=== PATIENT | female | born 1960 | race Caucasian/White ===

== ENCOUNTER 2020-08-12 20:20 | Outpatient (REF) | payer OTHER, SELFPAY | END 2020-08-12 20:21 | disposition home or self-care (01) | LOC: HO.LNP 20:20 | PROVIDERS: Visit Provider Family Medicine | DX: Z20.822 Contact with and (suspected) exposure to COVID-19 (principal); R05 Cough | CPT/HCPCS: U0003; U0005 ==

== ENCOUNTER 2021-01-18 12:16 | Outpatient (REF) | payer OTHER, SELFPAY ==
[2021-01-18 14:16] LABS: Alanine Aminotransferase 204 U/L (0-31); Albumin Level 4.2 g/dL (3.5-5.0); Alkaline Phosphatase 66 U/L (39-117); Anion Gap 14 (12-20); Aspartate Amino Transferase 170 U/L (5-31); Bilirubin Total 0.7 mg/dL (0.0-1.0); Blood Urea Nitrogen 7 mg/dL (9-16); Calcium 9.6 mg/dL (8.4-10.2); Carbon Dioxide 30 mmol/L (22-29); Chloride 101 mmol/L (96-108); Cholesterol 207 mg/dL; Estimated Glomerular Filt Rate 59; Glucose Fasting 143 mg/dL (60-99); HDL Cholesterol 40 mg/dL; LDL Cholesterol Calculated 99 mg/dl; Potassium 3.7 mmol/L (3.3-5.1); Sodium 141 mmol/L (135-145); Total Protein 7.4 g/dL (6.5-8.0); Triglycerides 343 mg/dL
[2021-01-18 14:38] LABS: TSH reflex Free T4 7.23 uIU/mL (0.32-4.0)
[2021-01-18 15:13] LABS: Free T4 (Free Thyroxine) 1.25 ng/dL (0.71-1.85)
== END 2021-01-18 12:17 | disposition home or self-care (01) ==
LOC: HO.WFDLDS 12:16
PROVIDERS: Visit Provider Family Medicine
DX: Z00.00 Encounter for general adult medical examination without abnormal findings (principal); I10 Essential (primary) hypertension
CPT/HCPCS: 36415; 80053; 80061; 84439; 84443

== ENCOUNTER 2021-06-14 18:05 | Outpatient (REF) | payer OTHER, SELFPAY ==
[2021-06-14 18:54] LABS: Influenza A PCR NEGATIVE (Negative); Influenza B PCR NEGATIVE (Negative); Resp Syncy Virus RNA Qual PCR NEGATIVE (Negative); SARS COV2 PCR INHOUSE NEGATIVE (Negative)
== END 2021-06-14 18:06 | disposition home or self-care (01) ==
LOC: HO.LNP 18:05
PROVIDERS: Visit Provider Hospitalist
DX: Z20.822 Contact with and (suspected) exposure to COVID-19 (principal); B34.9 Viral infection, unspecified
CPT/HCPCS: 0241U

== ENCOUNTER 2021-09-22 16:20 | Outpatient (REF) | payer OTHER, SELFPAY ==
--- NOTE | ~2021-09-22 | MM_ITS ---
EXAMINATION: MM SCREENING DIGITAL BREAST TOMOSYNTHESIS, BILATERAL CLINICAL INFORMATION: Screening. Asymptomatic. The lifetime risk of breast cancer based on the Tyrer-Cuzick Model is 7%. COMPARISON: Outside mammography: 04/15/2019, 08/06/2017, 08/02/2016 ([place]) TECHNIQUE: Digital breast tomosynthesis is performed in both the craniocaudal and mediolateral oblique views along with computer-aided detection (CAD). Synthesized 2D images are generated from the tomosynthesis. Additional left CC view is provided. FINDINGS: The breasts are heterogeneously dense, which may obscure small masses (ACR BI-RADS breast composition Category c). Parenchymal pattern is similar to prior outside studies. There is no developing density or interval mass or architectural abnormality. Left breast has biopsy clip marker posterior central 3:00 position. No abnormal calcifications. The axilla are unremarkable. There are small bilateral low axillary tail nodes decreased in size. The skin contours are smooth. There are no significant changes. MM/MM tomosynthesis screening BI IMPRESSION: No significant changes from prior outside studies. ASSESSMENT: BI-RADS 2: Benign RECOMMENDATION: Routine annual mammography screening. This patient's information was entered into a reminder system with a target due date for their next mammogram.
[2021-09-22 17:25] LABS: Alanine Aminotransferase 193 U/L (0-31); Albumin Level 3.9 g/dL (3.5-5.0); Alkaline Phosphatase 90 U/L (39-117); Anion Gap 9 (12-20); Aspartate Amino Transferase 194 U/L (5-31); Bilirubin Total 0.5 mg/dL (0.0-1.0); Blood Urea Nitrogen 10 mg/dL (9-16); Calcium 9.7 mg/dL (8.4-10.2); Carbon Dioxide 32 mmol/L (22-29); Chloride 101 mmol/L (96-108); Cholesterol 180 mg/dL; Estimated Glomerular Filt Rate 45; Glucose Fasting 228 mg/dL (60-99); HDL Cholesterol 33 mg/dL; LDL Cholesterol Calculated 106 mg/dl; Sodium 138 mmol/L (135-145); Total Protein 7.4 g/dL (6.5-8.0); Triglycerides 207 mg/dL
[2021-09-22 17:39] LABS: Free T4 (Free Thyroxine) 0.64 ng/dL (0.71-1.85); Thyroid Stimulating Hormone 49.87 uIU/mL (0.32-4.0)
[2021-09-24 05:06] LABS: Triiodothyronine T3 Total 43 ng/dL (76-181)
== END 2021-09-22 16:21 | disposition home or self-care (01) ==
LOC: HO.MAMMO 16:20
PROVIDERS: Visit Provider Family Medicine
DX: Z00.00 Encounter for general adult medical examination without abnormal findings (principal); Z12.31 Encounter for screening mammogram for malignant neoplasm of breast; E03.9 Hypothyroidism, unspecified; R74.8 Abnormal levels of other serum enzymes
CPT/HCPCS: 36415; 77063; 77067; 80053; 80061; 84439; 84443; 84480

== ENCOUNTER 2021-11-03 12:19 | Outpatient (REF) | payer OTHER, SELFPAY ==
[2021-11-03 14:01] LABS: Estimated Average Glucose 143 mg/dL; Hemoglobin A1c % 6.6 %
[2021-11-03 14:10] LABS: Alanine Aminotransferase 74 U/L (0-31); Albumin Level 4.2 g/dL (3.5-5.0); Alkaline Phosphatase 70 U/L (39-117); Anion Gap 16 (12-20); Aspartate Amino Transferase 115 U/L (5-31); Bilirubin Total 0.9 mg/dL (0.0-1.0); Blood Urea Nitrogen 7 mg/dL (9-16); Carbon Dioxide 28 mmol/L (22-29); Chloride 98 mmol/L (96-108); Cholesterol 262 mg/dL; Estimated Glomerular Filt Rate 44; Glucose Random 243 mg/dL (60-115); HDL Cholesterol 71 mg/dL; LDL Cholesterol Calculated 166 mg/dl; Sodium 138 mmol/L (135-145); Total Protein 7.9 g/dL (6.5-8.0); Triglycerides 127 mg/dL
[2021-11-03 14:31] LABS: Free T4 (Free Thyroxine) 1.84 ng/dL (0.71-1.85); Thyroid Stimulating Hormone 15.31 uIU/mL (0.32-4.0)
[2021-11-04 16:07] LABS: Triiodothyronine T3 Total 94 ng/dL (76-181)
== END 2021-11-03 12:20 | disposition home or self-care (01) ==
LOC: HO.WFDLDS 12:19
PROVIDERS: Visit Provider Family Medicine
DX: Z00.00 Encounter for general adult medical examination without abnormal findings (principal); F10.20 Alcohol dependence, uncomplicated; E78.5 Hyperlipidemia, unspecified; E03.9 Hypothyroidism, unspecified; R74.8 Abnormal levels of other serum enzymes; E11.9 Type 2 diabetes mellitus without complications
CPT/HCPCS: 36415; 80053; 80061; 83036; 84439; 84443; 84480; 99202; 99212

== ENCOUNTER → 2021-11-10 15:54 | Outpatient (BNVA) | payer OTHER, SELFPAY | PROVIDERS: PCP Hospitalist; Visit Provider Nurse Practitioner Psychiatric/Mental Health | DX: F10.20 Alcohol dependence, uncomplicated (principal); Z79.891 Long term (current) use of opiate analgesic | CPT/HCPCS: 80305; 99212 ==

== ENCOUNTER 2021-11-15 12:11 | Outpatient (REF) | payer OTHER, SELFPAY ==
[2021-11-15 13:48] LABS: Estimated Average Glucose 128 mg/dL; Hemoglobin A1c % 6.1 %
[2021-11-15 13:52] LABS: Alanine Aminotransferase 109 U/L (0-31); Albumin Level 4.1 g/dL (3.5-5.0); Alkaline Phosphatase 68 U/L (39-117); Anion Gap 14 (12-20); Aspartate Amino Transferase 90 U/L (5-31); Blood Urea Nitrogen 32 mg/dL (9-16); Calcium 9.6 mg/dL (8.4-10.2); Carbon Dioxide 25 mmol/L (22-29); Chloride 102 mmol/L (96-108); Estimated Glomerular Filt Rate 18; Glucose Random 119 mg/dL (60-115); Potassium 3.7 mmol/L (3.3-5.1); Sodium 137 mmol/L (135-145); Total Protein 7.4 g/dL (6.5-8.0)
[2021-11-15 14:16] LABS: Free T4 (Free Thyroxine) 1.58 ng/dL (0.71-1.85); Thyroid Stimulating Hormone 0.28 uIU/mL (0.32-4.0)
[2021-11-17 13:17] LABS: Triiodothyronine T3 Total 87 ng/dL (76-181)
== END 2021-11-15 12:12 | disposition home or self-care (01) ==
LOC: HO.WFDLDS 12:11
PROVIDERS: Visit Provider Family Medicine
DX: E03.9 Hypothyroidism, unspecified (principal); R73.01 Impaired fasting glucose; F10.10 Alcohol abuse, uncomplicated
CPT/HCPCS: 36415; 80053; 83036; 84439; 84443; 84480

== ENCOUNTER 2021-11-22 12:45 | Outpatient (REF) | payer OTHER, SELFPAY ==
[2021-11-22 13:46] LABS: Anion Gap 14 (12-20); Blood Urea Nitrogen 10 mg/dL (9-16); Calcium 9.8 mg/dL (8.4-10.2); Carbon Dioxide 27 mmol/L (22-29); Chloride 102 mmol/L (96-108); Estimated Glomerular Filt Rate 52; Glucose Random 163 mg/dL (60-115); Potassium 3.6 mmol/L (3.3-5.1); Sodium 139 mmol/L (135-145)
== END 2021-11-22 12:46 | disposition home or self-care (01) ==
LOC: HO.WFDLDS 12:45
PROVIDERS: Visit Provider Hospitalist
DX: N17.9 Acute kidney failure, unspecified (principal)
CPT/HCPCS: 36415; 80048

== ENCOUNTER → 2021-11-24 16:35 | Outpatient (BNVA) | payer OTHER, SELFPAY | PROVIDERS: PCP Hospitalist; Visit Provider Nurse Practitioner Psychiatric/Mental Health | DX: Z51.81 Encounter for therapeutic drug level monitoring (principal); F10.20 Alcohol dependence, uncomplicated | CPT/HCPCS: 99212 ==

== ENCOUNTER 2021-12-29 12:59 | Outpatient (REF) | payer OTHER, SELFPAY ==
--- NOTE | ~2021-12-29 | US_ITS ---
EXAMINATION: US ABDOMEN LIMITED WITH LIVER ELASTOGRAPHY CLINICAL INFORMATION: Alcohol abuse COMPARISON: None. TECHNIQUE: Real-time imaging of the abdominal viscera. Noninvasive ultrasound liver fibrosis assessment is performed using Robert ElastPQ point quantification shear wave elastography (2D-SWE) with a C5-2 MHz transducer. Multiple elastography samples are obtained. FINDINGS: PANCREAS: The visualized pancreatic head and body are normal in appearance. The remainder of the pancreas is obscured from visualization by the overlying bowel gas. LIVER: Liver echotexture is increased. The liver demonstrates normal size and contour. No focal lesion or intrahepatic biliary duct dilatation. The right lobe measures 17 cm in length. The left lobe measures 13 cm in length. Portal flow is normal/hepatopedal Shear wave liver elastography median stiffness is 1.6 m/s (reference: normal median stiffness is 1.3 m/s or less). IQR/median stiffness to assess sampling precision is 0.38 (reference: good quality data set is IQR/median stiffness of 0.15 or less). GALLBLADDER: Gallbladder is normal in size. There is ring down artifact suggestive of adenomyomatosis of the gallbladder wall. There is a curvilinear dependent echogenic density seen in the neck of the gallbladder measuring 6 x 11 mm. On some images this demonstrates posterior acoustic shadowing questionable for a stone. COMMON BILE DUCT: Normal in caliber measuring 0.3 cm in diameter. RIGHT KIDNEY: Mild hydronephrosis. No renal calculi or focal parenchymal lesions. The kidney measures 13.6 cm in maximum dimension. FREE FLUID: None. US/US abdomen garcía w elastography IMPRESSION: 1. Impression: Echogenic liver. No evidence of cirrhosis or focal lesion. Adenomyomatosis of the gallbladder wall and question gallstone. Mild right hydronephrosis. Limited visualization of the tail the pancreas. 2. Liver elastography: Limited due to sampling error. REFERENCE: Society of Radiologists in Ultrasound Liver Stiffness Thresholds (2020): LIVER STIFFNESS THRESHOLDS: *Liver Stiffness equal or less than 1.3 m/s: High probability of being normal. *Liver Stiffness less than 1.7 m/s: In the absence of other known clinical signs, rules out compensated advanced chronic liver disease. *Liver Stiffness 1.7-2.1 m/s: Suggestive of compensated advanced chronic liver disease but need further test for confirmation. *Liver Stiffness over 2.1 m/s: Rules in compensated advanced chronic liver disease. *Liver Stiffness over 2.4 m/s: Suggestive of clinically significant portal hypertension. QUALITY OF DATA SET: *IQR/Median value equal or less than 0.15 implies a quality data set. *IQR/Median value over 0.15 implies a poor quality data set. SIGNIFICANT CHANGE FROM PRIOR EXAM: Significant change if liver stiffness measurement is 10% or greater from prior exam. OTHER CONSIDERATIONS: The stage of liver fibrosis may be overestimated in the setting of acute hepatitis, liver inflammation, elevated liver function tests, hepatic vascular congestion, obstructive cholestasis, non-fasting state, and infiltrative diseases such as amyloidosis and lymphoma. In some patients with NAFLD, the liver stiffness thresholds for compensated advanced chronic liver disease may be lower. In causes other than viral hepatitis and NAFLD, liver stiffness thresholds are not well established.
== END 2021-12-29 13:00 | disposition home or self-care (01) ==
LOC: HO.US 12:59
PROVIDERS: Visit Provider Family Medicine
DX: R74.8 Abnormal levels of other serum enzymes (principal); F10.10 Alcohol abuse, uncomplicated
CPT/HCPCS: 76705; 76981

== ENCOUNTER 2022-01-25 12:11 | Outpatient (REF) | payer OTHER, SELFPAY ==
[2022-01-25 14:45] LABS: Alanine Aminotransferase 14 U/L (0-31); Alkaline Phosphatase 59 U/L (39-117); Anion Gap 15 (12-20); Aspartate Amino Transferase 17 U/L (5-31); Bilirubin Total 0.5 mg/dL (0.0-1.0); Blood Urea Nitrogen 13 mg/dL (9-16); Calcium 10.2 mg/dL (8.4-10.2); Carbon Dioxide 30 mmol/L (22-29); Chloride 102 mmol/L (96-108); Cholesterol 154 mg/dL; Estimated Glomerular Filt Rate 57; Glucose Random 79 mg/dL (60-115); HDL Cholesterol 32 mg/dL; LDL Cholesterol Calculated 87 mg/dl; Potassium 3.6 mmol/L (3.3-5.1); Sodium 143 mmol/L (135-145); Total Protein 7.4 g/dL (6.5-8.0); Triglycerides 178 mg/dL
[2022-01-25 15:08] LABS: Free T4 (Free Thyroxine) 0.92 ng/dL (0.71-1.85); Thyroid Stimulating Hormone 2.68 uIU/mL (0.32-4.0)
[2022-01-27 14:47] LABS: Triiodothyronine T3 Total 109 ng/dL (76-181)
== END 2022-01-25 12:12 | disposition home or self-care (01) ==
LOC: HO.WFDLDS 12:11
PROVIDERS: Visit Provider Family Medicine
DX: Z00.00 Encounter for general adult medical examination without abnormal findings (principal); E03.9 Hypothyroidism, unspecified; E78.5 Hyperlipidemia, unspecified; R74.8 Abnormal levels of other serum enzymes
CPT/HCPCS: 36415; 80053; 80061; 84439; 84443; 84480

== ENCOUNTER → 2022-01-30 15:28 | Outpatient (BNVA) | payer OTHER, SELFPAY | PROVIDERS: PCP Family Medicine; Visit Provider Internal Medicine | DX: D13.5 Benign neoplasm of extrahepatic bile ducts (principal); F10.20 Alcohol dependence, uncomplicated | CPT/HCPCS: 99202 ==

== ENCOUNTER 2022-01-30 16:24 | Outpatient (REF) | payer OTHER, SELFPAY ==
[2022-01-30 17:42] LABS: Hematocrit 37.5 % (37.0-47.0); Hemoglobin 12.3 g/dl (12.0-16.0); Mean Corpuscular HGB Conc 32.8 g/dl (31.0-35.0); Mean Corpuscular Hemoglobin 32.3 pg (27.0-33.0); Mean Corpuscular Volume 98.4 fL (80.0-98.0); Mean Platelet Volume 8.8 fL (9.4-12.3); Platelet Count 250 X10*3/uL (160-400); Red Blood Count 3.81 X10*6/uL (4.20-5.50); Red Cell Distribution Width 12.6 % (11.0-16.0); White Blood Count 9.7 X10*3/uL (4.8-10.8)
[2022-01-30 17:48] LABS: Prothrombin Time 11.7 SEC (10.0-13.1)
[2022-01-30 17:54] LABS: Albumin Level 4.2 g/dL (3.5-5.0)
[2022-01-30 17:56] LABS: Estimated Average Glucose 148 mg/dL; Hemoglobin A1c % 6.8 %
[2022-01-31 04:40] LABS: HBS Num1 46.91 mIU/mL (0-7.99); HBc Num1 0.11 S/CO (0.00-0.79); HBsAGNum1 0.18 S/CO (0.00-0.99); Hepatitis B Core Antibody Nonreactive (Nonreactive); Hepatitis B Surface Antigen Negative (Negative); ~HepC Num1 0.12 S/CO (0.00-0.79); ~Hepatitis B Surface Antibody REACTIVE (Nonreactive); ~Hepatitis C Antibody Nonreactive (Nonreactive)
[2022-02-01 05:03] LABS: Hepatitis A Antibody IgG REACTIVE (Nonreactive); ~Hepatitis A Antibody IgG 10.78 S/CO (0.00-0.99)
== END 2022-01-30 16:25 | disposition home or self-care (01) ==
LOC: HO.LAB 16:24
PROVIDERS: PCP Family Medicine; Visit Provider Internal Medicine
DX: F10.20 Alcohol dependence, uncomplicated (principal)
CPT/HCPCS: 36415; 82040; 83036; 85027; 85610; 86704; 86706; 86708; 86803; 87340

== ENCOUNTER 2022-02-24 16:06 | Outpatient (REF) | payer OTHER, SELFPAY ==
--- NOTE | ~2022-02-24 | MR_ITS ---
EXAMINATION: MR ABDOMEN WITHOUT AND WITH CONTRAST CLINICAL INFORMATION: Benign neoplasm of extrahepatic bile ducts. COMPARISON: Ultrasound 12/29/2021 TECHNIQUE: MR abdomen was performed without and with use of 9 mL intravenous Gadavist gadolinium contrast. Postcontrast images are performed in multiphase dynamic sequences. Imaging was performed in 3 planes. Heavily T2-weighted MRCP images were performed. FINDINGS: LUNG BASES: The visualized lung bases are unremarkable. LIVER, GALLBLADDER, AND BILIARY TREE: The liver is normal in size, smooth in contour, and normal in signal. No focal hepatic lesion or biliary ductal dilatation is present. There is thickening of the fundus of the gallbladder with bright T2 signal for example sagittal series 6 image 26/38, in keeping with the appearance of adenomyomatosis on the prior ultrasound. No definite gallstones seen. No pericholecystic fluid or inflammatory changes. PANCREAS: Unremarkable. SPLEEN: Normal. ADRENAL GLANDS: Normal. KIDNEYS AND URETERS: The kidneys are normal in size, shape, and enhance symmetrically. No hydronephrosis. No perinephric stranding. 5 mm right anterior mid-lower renal cortical cyst; no imaging follow-up recommended. GASTROINTESTINAL TRACT: No bowel obstruction. No ascites or fluid collection. ABDOMINAL WALL: No significant hernia is appreciated. LYMPH NODES: No lymphadenopathy. VASCULAR: Unremarkable. OSSEOUS STRUCTURES: Marrow signal normal. There is disc desiccation L3-L4 through L5-S1 with mild loss of disc height at L5-S1. MR/MR abdomen wo/w con IMPRESSION: No biliary ductal dilatation. No hydronephrosis. The appearance of the fundus of the gallbladder is in keeping with the adenoma myomatosis of the gallbladder suspected on prior ultrasound.
== END 2022-02-24 16:07 | disposition home or self-care (01) ==
LOC: HO.MRI 16:06
PROVIDERS: Visit Provider Internal Medicine
DX: D13.5 Benign neoplasm of extrahepatic bile ducts (principal)
CPT/HCPCS: 74183; A9585

== ENCOUNTER 2022-05-12 11:16 | Outpatient (REF) | payer OTHER, SELFPAY ==
[2022-05-12 13:47] LABS: MANUAL DIFF FLAG NO
[2022-05-12 13:51] LABS: Appearance Urine Cloudy; Color Urine Dark Yellow; Glucose Urine UA Negative (Negative); Leukocyte Esterase Urine Moderate (2+) (Negative); Nitrite Urine Negative (Negative); PH 5.5 (5.0-9.0); Specific Gravity - Urine 1.015 (1.005-1.025); UMIC TRIGGER UA YES; Urine Blood Negative (Negative); Urine Ketones Negative (Negative); Urine Protein Negative (Neg-Trace)
[2022-05-12 13:52] LABS: Basophils Absolute Auto 0.1 X10*3/uL (0.0-0.2); Basophils Percent Auto 0.6 % (0-2); Eosinophils Absolute Auto 0.3 X10*3/uL (0.0-0.4); Eosinophils Percent Auto 2.8 % (0-4); Hematocrit 37.4 % (37.0-47.0); Hemoglobin 12.8 g/dl (12.0-16.0); Imm Gran Abs Auto 0.04 X10*3/uL (0.00-0.03); Imm Gran Pct Auto 0.4 % (0.0-0.4); Lymphocytes Absolute Auto 2.7 X10*3/uL (1.2-4.9); Lymphocytes Percent Auto 27.3 % (20-40); Mean Corpuscular HGB Conc 34.2 g/dl (31.0-35.0); Mean Corpuscular Hemoglobin 32.3 pg (27.0-33.0); Mean Corpuscular Volume 94.4 fL (80.0-98.0); Mean Platelet Volume 9.1 fL (9.4-12.3); Monocytes Absolute Auto 0.7 X10*3/uL (0.1-1.2); Monocytes Percent Auto 6.8 % (2-11); Neutrophils Absolute Auto 6.2 x10*3/uL (2.0-8.3); Neutrophils Percent Auto 62.1 % (45-73); Platelet Count 243 X10*3/uL (160-400); Red Blood Count 3.96 X10*6/uL (4.20-5.50); Red Cell Distribution Width 12.9 % (11.0-16.0)
[2022-05-12 13:54] LABS: Bacteria Urine 4+ (None Seen); Hyaline Casts Urine 0-2 /LPF (0-2); RBC Urine 0-2 /HPF (0-2)
[2022-05-12 14:21] LABS: Creatinine Urine 135.19 mg/dL; Microalbum/Creatinine Ratio Ur 4.4 ug/mg cr
[2022-05-12 14:54] LABS: Alanine Aminotransferase 25 U/L (0-31); Albumin Level 4.1 g/dL (3.5-5.0); Alkaline Phosphatase 82 U/L (39-117); Anion Gap 15 (12-20); Aspartate Amino Transferase 17 U/L (5-31); Bilirubin Total 0.4 mg/dL (0.0-1.0); Blood Urea Nitrogen 17 mg/dL (9-16); Calcium 10.1 mg/dL (8.4-10.2); Carbon Dioxide 28 mmol/L (22-29); Chloride 103 mmol/L (96-108); Cholesterol 154 mg/dL; Estimated Glomerular Filt Rate 50; Free T4 (Free Thyroxine) 0.92 ng/dL (0.71-1.85); Glucose Fasting 141 mg/dL (60-99); HDL Cholesterol 31 mg/dL; LDL Cholesterol Calculated 56 mg/dl; Sodium 142 mmol/L (135-145); Thyroid Stimulating Hormone 9.57 uIU/mL (0.32-4.0); Total Protein 7.3 g/dL (6.5-8.0); Triglycerides 338 mg/dL
[2022-05-13 17:45] LABS: Triiodothyronine T3 Total 80 ng/dL (76-181)
== END 2022-05-12 11:17 | disposition home or self-care (01) ==
LOC: HO.WFDLDS 11:16
PROVIDERS: Visit Provider Family Medicine
DX: Z00.00 Encounter for general adult medical examination without abnormal findings (principal); E03.9 Hypothyroidism, unspecified; I10 Essential (primary) hypertension
CPT/HCPCS: 36415; 80053; 80061; 81001; 82043; 84439; 84443; 84480; 85025

== ENCOUNTER 2022-06-02 14:27 | Outpatient (REF) | payer OTHER, SELFPAY ==
--- NOTE | ~2022-06-02 | MM_ITS ---
EXAMINATION: BONE DENSITOMETRY CLINICAL INDICATION: Menopause. COMPARISON: None (current study represents initial baseline exam). TECHNIQUE: Using a Netpulse DXA System (software version: 13.1) manufactured by [employer], dual-energy x-ray absorptiometry was performed of the lumbar spine and left hip. The images are of good technical quality. Summary results are attached. FINDINGS: AP SPINE L1-L2 (excluding L3 and L4): The data of L1-L4 has been changed to exclude the L3 and L4 vertebral bodies, because probable degenerative changes at these levels may cause overestimation of lumbar spine density. BMD 1.707 g/cm2, Z-score 4.9, T-score 4.5, normal. LEFT FEMUR, NECK: BMD 1.337 g/cm2, Z-score 2.9, T-score 2.1, normal. LEFT FEMUR, TOTAL: BMD 1.510 g/cm2, Z-score 4.3, T-score 4.0, normal. IDENTIFIED RISK FACTORS: Menopause, low calcium intake. HISTORY OF FRACTURE: None listed. MEDICATIONS: None listed. MM/XR DEXA axial skeleton IMPRESSION: 1. DIAGNOSIS: Normal bone density based on the lowest T-score value of 2.1 in the femoral neck applying World Health Organization criteria. 2. 10-YEAR FRACTURE RISK PREDICTION, FRAX: According to the guidelines, FRAX calculation should only be performed on patients in the osteopenia bone density category. Therefore, FRAX was not performed on this patient. 3. Treatment Recommendations: NOF guidelines recommend consideration for treatment in postmenopausal women and men age 50 and older presenting with the following: -A hip or vertebral (clinical or morphometric) fracture. -T-score less than or equal to -2.5 at the femoral neck or spine after appropriate evaluation to exclude secondary causes. -Low bone mass at the hip or spine and a 10-year fracture probability by FRAX of greater than or equal to 3% for hip fracture or greater than or equal to 20% for major osteoporotic fracture based on the [place] adapted WHO algorithm. 4. Other Recommendations: All treatment decisions require clinical judgment and consideration of individual patient factors, including patient preferences, comorbidities, previous drug use, risk factors not captured in the FRAX model (e.g. frailty, falls, vitamin D deficiency, increased bone turnover, interval significant decline in bone density) and possible under or overestimation of fracture risk by FRAX. FUTURE SCAN RECOMMENDATION: People with diagnosed cases of osteoporosis or at high risk for fracture should have regular bone mineral density tests. For patients eligible for Medicare, routine testing is allowed once every 2 years. The testing frequency can be increased to one year for patients who have rapidly progressing disease, those who are receiving or discontinuing medical therapy to restore bone mass, or have additional risk factors.
[2022-06-02 15:26] LABS: Appearance Urine Cloudy; Color Urine Dark Yellow; Glucose Urine UA Negative (Negative); Leukocyte Esterase Urine Trace (Negative); Nitrite Urine Negative (Negative); UMIC TRIGGER UA YES; Urine Blood Negative (Negative); Urine Ketones Negative (Negative); Urine Protein Negative (Neg-Trace)
[2022-06-02 15:34] LABS: Bacteria Urine 4+ (None Seen); Hyaline Casts Urine 0-2 /LPF (0-2); RBC Urine 0-2 /HPF (0-2)
[2022-06-02 16:16] LABS: Free T4 (Free Thyroxine) 0.74 ng/dL (0.71-1.85); Thyroid Stimulating Hormone 9.17 uIU/mL (0.32-4.0)
[2022-06-05 08:36] LABS: Triiodothyronine T3 Total 57 ng/dL (76-181)
== END 2022-06-02 14:28 | disposition home or self-care (01) ==
LOC: HO.MAMMO 14:27
PROVIDERS: PCP Family Medicine; Visit Provider Family Medicine
DX: Z13.820 Encounter for screening for osteoporosis (principal); Z78.0 Asymptomatic menopausal state; E03.9 Hypothyroidism, unspecified
CPT/HCPCS: 36415; 77080; 81001; 84439; 84443; 84480

== ENCOUNTER 2022-08-14 12:26 | Outpatient (REF) | payer OTHER, SELFPAY ==
[2022-08-14 14:18] LABS: Alanine Aminotransferase 22 U/L (0-31); Alkaline Phosphatase 61 U/L (39-117); Anion Gap 11 (12-20); Aspartate Amino Transferase 23 U/L (5-31); Bilirubin Total 0.5 mg/dL (0.0-1.0); Blood Urea Nitrogen 11 mg/dL (9-16); Calcium 9.5 mg/dL (8.4-10.2); Carbon Dioxide 33 mmol/L (22-29); Chloride 101 mmol/L (96-108); Cholesterol 190 mg/dL; Estimated Average Glucose 163 mg/dL; Estimated Glomerular Filt Rate 54; Glucose Fasting 183 mg/dL (60-99); HDL Cholesterol 37 mg/dL; Hemoglobin A1c % 7.3 %; LDL Cholesterol Calculated 93 mg/dl; Potassium 4.4 mmol/L (3.3-5.1); Sodium 141 mmol/L (135-145); Triglycerides 301 mg/dL
== END 2022-08-14 12:27 | disposition home or self-care (01) ==
LOC: HO.WFDLDS 12:26
PROVIDERS: Visit Provider Family Medicine
DX: Z00.00 Encounter for general adult medical examination without abnormal findings (principal); R73.01 Impaired fasting glucose
CPT/HCPCS: 36415; 80053; 80061; 83036

== ENCOUNTER → 2022-10-06 13:02 | Outpatient (BNVA) | payer OTHER, SELFPAY | PROVIDERS: PCP Family Medicine; Visit Provider Internal Medicine | DX: Z12.11 Encounter for screening for malignant neoplasm of colon (principal); D13.5 Benign neoplasm of extrahepatic bile ducts; F10.20 Alcohol dependence, uncomplicated | CPT/HCPCS: 99212 ==

== ENCOUNTER → 2022-10-25 14:58 | Outpatient (BNVA) | payer OTHER, SELFPAY | PROVIDERS: PCP Family Medicine; Referring Provider Internal Medicine; Visit Provider Surgery | DX: D13.5 Benign neoplasm of extrahepatic bile ducts (principal) | CPT/HCPCS: 99202 ==

== ENCOUNTER 2022-12-27 13:23 | Outpatient (REF) | payer OTHER, SELFPAY ==
[2022-12-27 14:59] LABS: Estimated Average Glucose 166 mg/dL; Hemoglobin A1c % 7.4 % (<6.0)
[2022-12-27 16:12] LABS: Alanine Aminotransferase 39 U/L (0-31); Albumin Level 4.3 g/dL (3.5-5.0); Alkaline Phosphatase 64 U/L (39-117); Anion Gap 12 (12-20); Aspartate Amino Transferase 29 U/L (5-31); Bilirubin Total 0.3 mg/dL (0.0-1.0); Blood Urea Nitrogen 11 mg/dL (9-16); Carbon Dioxide 27 mmol/L (22-29); Chloride 101 mmol/L (96-108); Cholesterol 185 mg/dL (<200); Estimated Glomerular Filt Rate 57; Glucose Fasting 302 mg/dL (60-99); HDL Cholesterol 39 mg/dL (>40); LDL Cholesterol Calculated 75 mg/dL (<100); Potassium 4.1 mmol/L (3.3-5.1); Sodium 136 mmol/L (135-145); Total Protein 7.6 g/dL (6.5-8.0); Triglycerides 357 mg/dL (<150)
[2022-12-27 16:30] LABS: Free T4 (Free Thyroxine) 0.92 ng/dL (0.71-1.85); Thyroid Stimulating Hormone 6.09 uIU/mL (0.32-4.0)
[2022-12-28 18:29] LABS: Triiodothyronine T3 Total 79 ng/dL (76-181)
== END 2022-12-27 13:24 | disposition home or self-care (01) ==
LOC: HO.LAB 13:23
PROVIDERS: PCP Family Medicine; Visit Provider Family Medicine
DX: Z01.419 Encounter for gynecological examination (general) (routine) without abnormal findings (principal); E03.9 Hypothyroidism, unspecified; E11.9 Type 2 diabetes mellitus without complications; Z00.00 Encounter for general adult medical examination without abnormal findings; E78.5 Hyperlipidemia, unspecified; R73.01 Impaired fasting glucose
CPT/HCPCS: 36415; 80053; 80061; 83036; 84439; 84443; 84480

== ENCOUNTER 2022-12-27 13:39 | Outpatient (AMB) | payer OTHER, SELFPAY ==
--- NOTE | 2022-12-27 13:40 | MHC.OFFVIS ---
Intake Vital Signs 12/27/22 13:41 Height 5 ft 4 in Weight 217 lb BMI 37.2 BP 148/70 H Intake Visit Reasons: New patient Annual Intake Note: Last pap unsure normal history per patient The patient agreed to use of a medical anthropologist during this encounter. Scribed for QUYNH Maurer by Neha Boston medical anthropologist, on 12/27/2022 at 2:05 pm EST. Ethylbenzene Converter Operator: Ethylbenzene Converter Operator Present (Luh) Allergies bupropion [From Wellbutrin] Allergy (Verified 12/27/22 13:41) rash iodine Allergy (Verified 12/27/22 13:41) hives lisinopril Allergy (Verified 12/27/22 13:41) angioadema shellfish derived Allergy (Verified 12/27/22 13:41) hives HPI HPI Comments History of Present Illness Details She is a new patient postmenopausal woman presenting for annual exam. Reports she is retiring. Patient admits she tries to eat a healthy diet including Calcium and Vitamin D. Currently not sexually active due to husbands health concerns. Denies vaginal itching and irritation. STD screening offered; she declines. Denies family hx of breast, colon and ovarian cancer. Last pap smear unknown date; normal per pt. Last mammogram 09/22/21. UTD on colonoscopy. 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 Current occupational exposures/hazards: No Sexual orientation: Straight/Heterosexual Gender identity: Female Cognitive needs: No Hearing needs: No Vision needs: No Female Reproductive History Menstrual Menopause type: natural Total pregnancies: 0 Date of Mammogram: 09/22/21 ([facility]) Physical Exam Vital Signs: Last Vital Signs BP 148/70 H 12/27/22 13:41 BMI result Body Mass Index 37.2 Const General: cooperative, healthy appearing, no acute distress, well developed and alert Orientation/consciousness: patient oriented x3 HEENT Head: Yes normal to inspection Eyes General: appearance normal, both eyes and all related structures Neck Neck: Yes normal visual inspection Thyroid: Thyroid normal Chest Chest palpation & inspection: normal inspection of the chest Breast/axilla inspection: normal inspection of the breasts (no puckering, dimpling, peau de orange, retraction, discharge, masses) Breast/axilla palpation: normal palpation of the breasts Resp Effort & Inspection: normal respiratory effort GI Inspection: Yes normal to inspection Palpation (GI): Soft to palpation (to palpation) Rectal Exam - Female: deferred General: Yes bladder normal to inspection External Female Exam: normal external appearance and normal appearance of the urethra Speculum Exam - Vagina: normal appearance of the vagina, normal palpation and normal vaginal discharge Speculum Exam - Cervix: normal appearance of the cervix and normal palpation Bimanual exam- vagina & uterus: normal palpation and normal palpation Bimanual Exam- Adnexa, other: normal adnexae and no masses Skin General skin exam: no rashes or lesions noted Neuro General: patient oriented x3 Cognition (Neuro): normal cognition Extrem General: Yes normal to inspection Psych Attitude: cooperative Thought process: Normal thought process present Assessment & Plan Assessment & Plan (1) Encounter for well woman exam: Code(s): Z01.419 - Encounter for gynecological examination (general) (routine) without abnormal findings Plan: Discussed: Current recommendations for pap smears per ASCCP guidelines. Breast awareness and periodic self breast exams. Encouraged yearly mammograms. Mammogram ordered. Maintaining a healthy lifestyle including a well balanced diet including Calcium and Vitamin D and routine exercise. Contact office with any PMB. All of her questions and concerns were addressed to the best of my ability RTO in 1 year for AG. Orders: Orders MM tomosynthesis screening BI Today Z12.31 - Encounter for screening mammogram for malignant neoplasm of breast Pap Smear Today Z01.419 - Encounter for gynecological examination (general) (routine) without abnormal findings Coding Level of Care Code Est Pt Prev Care 40-64y(88652) Diagnoses Encounter for well woman exam Z01.419
[2022-12-27 13:41] VITALS: BP 148/70; BMI 37.2
== END 2022-12-27 14:22 | disposition home or self-care (01) ==
LOC: HO.HWS 13:39
PROVIDERS: PCP Family Medicine; Visit Provider Advanced Practice Midwife
DX: Z01.419 Encounter for gynecological examination (general) (routine) without abnormal findings (principal)
CPT/HCPCS: 99396

== ENCOUNTER 2022-12-27 14:18 | Outpatient (REF) | payer OTHER, SELFPAY ==
[2023-01-02 23:08] LABS: HPV mRNA E6/E7 rflx Not Detected (Not Detected)
== END 2022-12-27 14:19 | disposition home or self-care (01) ==
LOC: HO.LNP 14:18
PROVIDERS: Visit Provider Advanced Practice Midwife
DX: E03.9 Hypothyroidism, unspecified (principal); E11.9 Type 2 diabetes mellitus without complications; Z00.00 Encounter for general adult medical examination without abnormal findings; E78.5 Hyperlipidemia, unspecified; R73.01 Impaired fasting glucose
CPT/HCPCS: 87624; 88142

== ENCOUNTER 2022-12-28 14:52 | Outpatient (AMB) | payer OTHER, SELFPAY ==
--- NOTE | 2022-12-28 15:07 | A.OFFPC_ITS ---
Vital Signs 12/28/22 15:08 Height 5 ft 4 in Weight 217 lb BMI 37.2 BP 130/72 Blood Pressure Location Lt brachial Position Sitting Pulse 77 Pulse Source Pulse Oximeter Pulse Oximetry (%) 96 Oxygen Delivery Method Room Air Intake Visit Reasons: 3M Follow up Diabetes Intake Note: Patient is here for follow up on diabetes today. Patient complains of squiggles in left eye. She is concerned with the amount of Glipizide she is on, and would like sto discuss that. Allergies bupropion [From Wellbutrin] Allergy (Verified 12/28/22 15:10) rash iodine Allergy (Verified 12/28/22 15:10) hives lisinopril Allergy (Verified 12/28/22 15:10) angioadema shellfish derived Allergy (Verified 12/28/22 15:10) hives Tobacco use date assessed: 12/28/22 Dental Screening Dental Screen Date: 12/28/22 Did you have a dental visit in the last 12 months?: Yes Did you have a dental problem in the last 6 months where you did not have access to dental care?: No Was dental information given to patient?: Patient has dentist HPI 3M Follow up Diabetes HPI Details 62 y/o female presents to f/u hypertension, diabetes and hyperlipidemia. Labs were drawn 12/27/22. Reviewed labs with pt. Elevated fasting glucose of 302 - A1c 7.4%. She reports vision changes - she reports a squiggle in her L eye. Elevated ALT of 39. Triglycerides worsened from 301 to 357. LDL 75. TC 185. HDL low at 39. TSH improved from 9.17 to 6.09. Blood pressure today is 130/72. 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 Umair Fleming, Joyce Lea, Aleks Saavedra and colleagues, with an educational nahun from [employer]. Review of Systems Const Denies chills, Denies fatigue, Denies fever(s), Denies headache(s) and Denies weakness ENT Denies dizziness and Denies headache(s) Card Denies chest pain, Denies lightheadedness, Denies dyspnea and Denies other (Palpitations) Resp Denies cough, Denies dyspnea, Denies wheezing and Denies other ( shortness of breath) Musc Denies numbness and Denies tingling Neuro Denies dizziness, Denies headache(s), Denies numbness, Denies tingling, Denies paresthesias and Denies weakness Psych Denies anxiety and Denies depression Endo Denies fatigue Aller/Immun Denies wheezing Physical exam (Primary Care) Vital Signs: Last Vital Signs Pulse 77 12/28/22 15:08 BP 130/72 12/28/22 15:08 Pulse Ox 96 12/28/22 15:08 Oxygen Delivery Method Room Air 12/28/22 15:08 BMI result Body Mass Index 37.2 Tobacco/Smoking Status: Tobacco use Status Tobacco use date assessed 12/28/22 12/28/22 15:14 Patient Tobacco Use Status Never used Tobacco 12/28/22 15:14 e-Cigarette/Vaping Use Never Used 12/28/22 15:14 Thrive Assessment: Date of Thrive Assessment Date Thrive assessed 05/15/22 12/28/22 15:14 Const General: no acute distress and well developed Nutritional Appearance: well nourished and obese Orientation/consciousness: patient oriented x3 HENMT Head: Yes normocephalic and Yes atraumatic Eyes General: appearance normal, both eyes and all related structures Pupils: Equal, round and reactive pupils present EOM: EOMs intact bilaterally Resp Effort & Inspection: normal respiratory effort Auscultation: clear to auscultation bilaterally Cardio Rate: regular rate Rhythm: regular rhythm Heart sounds: S1 normal heart sound present, S2 normal heart sound present, no gallops, no murmurs and no rubs Neuro General: patient oriented x3 and gait normal Cranial nerves: Yes Equal, round and reactive pupils present Psych Affect: normal affect Assessment and Plan Assessment & Plan (1) Diabetes type 2, controlled: Code(s): E11.9 - Type 2 diabetes mellitus without complications Plan: Worsening control of diabetes and patient notes significant dietary indiscretions still. A1c has continued to climb now at 7.4%. Goal is less than 7.0% Add Trmarcell Continue metformin and glipizide as prescribed. She would like to decrease glipizide as she achieves better control. (2) Essential hypertension: Code(s): I10 - Essential (primary) hypertension Plan: Blood pressure is controlled Goal is less than 140/90 Continue current medication regimen (3) Hypothyroidism: Code(s): E03.9 - Hypothyroidism, unspecified Plan: TSH is still off. Increasing levothyroxine from 112 mcg to 125 mcg daily Will recheck 6 weeks (4) Hyperlipidemia: Code(s): E78.5 - Hyperlipidemia, unspecified Plan: Triglycerides are too high Will recheck prior to her next visit. (5) Elevated liver enzymes: Code(s): R74.8 - Abnormal levels of other serum enzymes Plan: Will repeat prior to next visit Encouraged weight loss and exercise (6) Vision changes: Code(s): H53.9 - Unspecified visual disturbance Plan: Describes floaters Also has history of diabetes and this is poorly controlled Referred to ophthalmology Orders: Orders Comprehensive [place]. Panel Fast Today R74.8 - Abnormal levels of other serum enzymes, Z00.00 - Encounter for general adult medical examination without abnormal findings Lipid Panel Today E78.5 - Hyperlipidemia, unspecified, Z00.00 - Encounter for general adult medical examination without abnormal findings Triiodothyronine T3 Total Today E03.9 - Hypothyroidism, unspecified Free T4 (Free Thyroxine) Today E03.9 - Hypothyroidism, unspecified Thyroid Stimulating Hormone Today E03.9 - Hypothyroidism, unspecified Referrals Ophthalmology Referral E11.9 - Type 2 diabetes mellitus without complications, H53.9 - Unspecified visual disturbance Medications: New dulaglutide (Trulicity) 0.75 mg (0.5 mL) subcut QWEEK 2 mL 2RF 28 days Changed From levothyroxine 112 mcg PO DAILY 90 days 90 caps 2RF To levothyroxine 125 mcg PO DAILY 90 caps 2RF 90 days Coding Level of Care Code Est Pt Level 4 (81942) Diagnoses Diabetes type 2, controlled E11.9 Essential hypertension I10 Hypothyroidism E03.9 Hyperlipidemia E78.5 Elevated liver enzymes R74.8 Vision changes H53.9
[2022-12-28 15:08] VITALS: BP 130/72; PULSE 77; O2SAT 96; BMI 37.2
== END 2022-12-28 15:37 | disposition home or self-care (01) ==
PROVIDERS: PCP Family Medicine; Visit Provider Family Medicine
DX: E11.9 Type 2 diabetes mellitus without complications (principal); I10 Essential (primary) hypertension; E03.9 Hypothyroidism, unspecified; E78.5 Hyperlipidemia, unspecified; R74.8 Abnormal levels of other serum enzymes; H53.9 Unspecified visual disturbance
CPT/HCPCS: 99214

== ENCOUNTER 2023-01-11 14:48 | Outpatient (REF) | payer OTHER, SELFPAY ==
--- NOTE | ~2023-01-11 | US_ITS ---
EXAMINATION: US ABDOMEN LIMITED CLINICAL INFORMATION: Benign neoplasm of extrahepatic bile ducts. COMPARISON: MR abdomen without and with contrast 02/24/2022. US abdomen limited with liver elastography 12/29/2021. TECHNIQUE: Real-time imaging of the right upper quadrant abdominal viscera. FINDINGS: PANCREAS: Normal. LIVER: There is mild hepatomegaly, with a longitudinal span of 18.3 cm. The liver contour is normal. There is diffuse increased liver parenchymal echogenicity. No focal hepatic lesion. There is no intrahepatic biliary duct dilatation seen. GALLBLADDER: There is mild fundal adenomyomatosis, with ringdown artifact. The gallbladder is physiologically distended without evidence of stones, sludge, polyps, wall thickening or pericholecystic fluid. COMMON BILE DUCT: Normal in caliber measuring 0.3 cm in diameter. RIGHT KIDNEY: There is slight pelviectasis, without alexx hydronephrosis. No renal calculi or focal parenchymal lesions. The kidney measures 13.7 cm in maximum dimension. FREE FLUID: None. US/US abdomen limited IMPRESSION: 1. There is mild hepatomegaly. 2. There is generalized increase in hepatic echotexture, consistent with fatty infiltration or hepatocellular disease. Please correlate clinically. No focal hepatic mass or intrahepatic biliary dilatation is seen. 3. There is mild gallbladder adenomyomatosis, with ringdown artifact seen at the fundus.
== END 2023-01-11 14:49 | disposition home or self-care (01) ==
LOC: HO.US 14:48
PROVIDERS: Visit Provider Surgery
DX: D13.5 Benign neoplasm of extrahepatic bile ducts (principal)
CPT/HCPCS: 76705

== ENCOUNTER 2023-02-12 13:57 | Outpatient (REF) | payer OTHER, SELFPAY ==
--- NOTE | ~2023-02-12 | MM_ITS ---
EXAMINATION: MM SCREENING DIGITAL BREAST TOMOSYNTHESIS, BILATERAL CLINICAL INFORMATION: Screening. Asymptomatic. COMPARISON: Mammography: This study is compared with prior exams dating back to 2017. TECHNIQUE: Digital breast tomosynthesis is performed in both the craniocaudal and mediolateral oblique views along with computer-aided detection (CAD). Synthesized 2D images are generated from the tomosynthesis. FINDINGS: The breasts are heterogeneously dense, which may obscure small masses (ACR BI-RADS breast composition Category c). There are no significant masses, abnormal calcifications, or other abnormalities. There is a tissue marker in the left breast from prior benign percutaneous biopsy. MM/MM tomosynthesis screening BI IMPRESSION: No mammographic evidence of malignancy. ASSESSMENT: BI-RADS BI-RADS 2 - Benign Findings RECOMMENDATION: Routine annual mammography screening. 1 year F/U This examination should not preclude the clinical evaluation of a suspicious palpable abnormality. This patient's information was entered into a reminder system with a target due date for their next mammogram.
== END 2023-02-12 13:58 | disposition home or self-care (01) ==
LOC: HO.MAMMO 13:57
PROVIDERS: PCP Family Medicine; Visit Provider Advanced Practice Midwife
DX: Z12.31 Encounter for screening mammogram for malignant neoplasm of breast (principal)
CPT/HCPCS: 77063; 77067

== ENCOUNTER → 2023-02-12 14:00 | Outpatient (BNV) | payer OTHER, SELFPAY | PROVIDERS: PCP Family Medicine; Visit Provider Radiology Diagnostic Radiology | DX: Z12.31 Encounter for screening mammogram for malignant neoplasm of breast (principal) | CPT/HCPCS: 77063; 77067 ==

== ENCOUNTER 2023-03-26 12:12 | Outpatient (REF) | payer OTHER, SELFPAY ==
[2023-03-26 15:43] LABS: Alanine Aminotransferase 42 U/L (0-31); Albumin Level 4.1 g/dL (3.5-5.0); Alkaline Phosphatase 61 U/L (39-117); Anion Gap 13 (12-20); Aspartate Amino Transferase 36 U/L (5-31); Bilirubin Total 0.3 mg/dL (0.0-1.0); Blood Urea Nitrogen 10 mg/dL (9-16); Calcium 9.5 mg/dL (8.4-10.2); Carbon Dioxide 28 mmol/L (22-29); Chloride 100 mmol/L (96-108); Cholesterol 173 mg/dL (<200); Estimated Glomerular Filt Rate > 60; Glucose Fasting 165 mg/dL (60-99); HDL Cholesterol 42 mg/dL (>40); LDL Cholesterol Calculated 58 mg/dL (<100); Sodium 137 mmol/L (135-145); Total Protein 7.3 g/dL (6.5-8.0); Triglycerides 369 mg/dL (<150)
[2023-03-26 15:53] LABS: Free T4 (Free Thyroxine) 0.94 ng/dL (0.71-1.85); Thyroid Stimulating Hormone 7.72 uIU/mL (0.32-4.0)
[2023-03-27 08:53] LABS: Triiodothyronine T3 Total 72 ng/dL (76-181)
== END 2023-03-26 12:13 | disposition home or self-care (01) ==
LOC: HO.WFDLDS 12:12
PROVIDERS: Visit Provider Family Medicine
DX: Z00.00 Encounter for general adult medical examination without abnormal findings (principal); R74.8 Abnormal levels of other serum enzymes; E03.9 Hypothyroidism, unspecified; E78.5 Hyperlipidemia, unspecified
CPT/HCPCS: 36415; 80053; 80061; 84439; 84443; 84480

== ENCOUNTER 2023-03-27 14:28 | Outpatient (AMB) | payer OTHER, SELFPAY ==
--- NOTE | 2023-03-27 14:31 | MHC.PC.OV ---
Vital Signs 03/27/23 14:34 Height 5 ft 4 in Weight 223 lb BMI 38.3 BP 138/70 Blood Pressure Location Rt brachial Position Sitting Respiration 13 Pulse 83 Pulse Source Pulse Oximeter Pulse Oximetry (%) 97 Oxygen Delivery Method Room Air Intake Visit Reasons: Follow up DM Intake Note: Patient is here for a follow up of diabetes. Patient is requesting a refill for ezetimibe and escitalopram. Patient is requesting a referral for pulmonology, specifically here at this office. Peer Financial Counselor Required: No Accompanied by: Self / Same As Patient Allergies bupropion [From Wellbutrin] Allergy (Verified 03/27/23 14:43) rash iodine Allergy (Verified 03/27/23 14:43) hives lisinopril Allergy (Verified 03/27/23 14:43) angioadema shellfish derived Allergy (Verified 03/27/23 14:43) hives Tobacco use date assessed: 12/28/22 HPI Follow up DM HPI Details 62 y/o female presents to f/u diabetes. Had added Trulicity last office visit 12/28/22. Last A1c 12/27/22 7.4%. A1c today 03/27/23 is 6.8%. Labs were drawn 03/26/23. Reviewed labs with pt. Liver enzymes elevated. AST 36, ALT 42. Triglycerides 369. TC 173. LDL 58. HDL 42. TSH level 7.72. Free T4 00.94. Total T3 72. HPI Comments History of Present Illness Details Documentation assistance for Bashir Sharp MD, was provided by Pedro Luis Hernandes,? Steamfitter on 03/27/2023 2:52 PM EST. I, Dr. Sharp, have read, observed, and verified documentation.? 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 Umair Fleming, Joyce Lea, Aleks Saavedra and colleagues, with an educational nahun from [employer] Review of Systems Const Denies chills, Denies fatigue, Denies fever(s), Denies headache(s) and Denies weakness ENT Denies dizziness and Denies headache(s) Card Denies dyspnea Resp Denies cough, Denies dyspnea, Denies wheezing and Denies other (shortness of breath) Musc Denies numbness and Denies tingling Neuro Denies dizziness, Denies headache(s), Denies numbness, Denies tingling and Denies weakness Psych Denies anxiety and Denies depression Endo Denies fatigue Aller/Immun Denies wheezing Physical exam (Primary Care) Vital Signs: Last Vital Signs Pulse 83 03/27/23 14:34 Resp 13 03/27/23 14:34 BP 138/70 03/27/23 14:34 Pulse Ox 97 03/27/23 14:34 Oxygen Delivery Method Room Air 03/27/23 14:34 BMI result Body Mass Index 38.3 Tobacco/Smoking Status: Tobacco use Status Tobacco use date assessed 12/28/22 03/27/23 14:32 Patient Tobacco Use Status Never used Tobacco 03/27/23 14:32 e-Cigarette/Vaping Use Never Used 03/27/23 14:32 Thrive Assessment: Date of Thrive Assessment Date Thrive assessed 05/15/22 03/27/23 14:32 Const General: well developed; No acute distress Nutritional Appearance: well nourished Orientation/consciousness: patient oriented x3 HENMT Head: Yes normocephalic and Yes atraumatic Eyes General: appearance normal, both eyes and all related structures Pupils: Equal, round and reactive pupils present EOM: EOMs intact bilaterally Resp Effort & Inspection: normal respiratory effort Neuro General: patient oriented x3 and gait normal Cranial nerves: Yes Equal, round and reactive pupils present Psych Affect: normal affect Results AMB Hemoglobin A1c AMB Hemoglobin A1c 6.8 % Last Edit by Renate Pak CMA on 03/27/23 14:50 Results Reviewed Results Reviewed: Laboratory Last Values Hgb A1c (Clinic) 6.8 % (4.0-6.0) H 03/27/23 14:46 Assessment and Plan Assessment & Plan (1) Diabetes type 2, controlled: Code(s): E11.9 - Type 2 diabetes mellitus without complications Plan: A1c?now?in?controlled?range?at?6.8% She?notes?that?she?is?having?trouble?digesting?glipizide. Will?stop?glipizide?and?increase?her?Trulicity Continue?metformin?as?prescribed Due?for?eye?exam-referred (2) Hyperlipidemia: Code(s): E78.5 - Hyperlipidemia, unspecified Plan: Triglycerides?are?significantly?elevated. Start?fenofibrate (3) Hypothyroidism: Code(s): E03.9 - Hypothyroidism, unspecified Plan: TSH?is?high Increase?levothyroxine?to?125?mcg (4) Essential hypertension: Code(s): I10 - Essential (primary) hypertension Plan: Blood?pressure?is?controlled (5) Elevated liver enzymes: Code(s): R74.8 - Abnormal levels of other serum enzymes Plan: Liver?ultrasound?in?2021?showed?evidence?of?fatty?liver?disorder Encouraged?weight?loss (6) Sleep apnea: Code(s): G47.30 - Sleep apnea, unspecified Plan: History?of?sleep?apnea?and?patient?uses?a?CPAP?machine?but?it?is?failing. Referred?to?Sleep?Medicine Orders: Orders AMB Hemoglobin A1c Today Z13.9 - Encounter for screening, unspecified Referrals Ophthalmology Referral E11.9 - Type 2 diabetes mellitus without complications, H53.9 - Unspecified visual disturbance Sleep Medicine Referral G47.30 - Sleep apnea, unspecified Medications: New fenofibrate 54 mg PO DAILY 90 days 90 tabs 2RF Changed From dulaglutide (Trulicity) 0.75 mg (0.5 mL) subcut QWEEK 28 days 2 mL 2RF To dulaglutide 1.5 mg (0.5 mL) subcut QWEEK 28 days 2 mL 2RF Refilled levothyroxine 125 mcg PO DAILY 90 caps 2RF 90 days Discontinued glipizide ER Discontinued Reason: Doctor's Order 10 mg PO BID 180 tabs 0RF E11.9 - Type 2 diabetes mellitus without complications Coding Level of Care Code Est Pt Level 4 (01228) Diagnoses Diabetes type 2, controlled E11.9 Hyperlipidemia E78.5 Hypothyroidism E03.9 Essential hypertension I10 Elevated liver enzymes R74.8 Sleep apnea G47.30
[2023-03-27 14:34] VITALS: BP 138/70; PULSE 83; RESP 13; O2SAT 97; BMI 38.3
== END 2023-03-27 15:10 | disposition home or self-care (01) ==
PROVIDERS: PCP Family Medicine; Visit Provider Family Medicine
DX: E11.9 Type 2 diabetes mellitus without complications (principal); E78.5 Hyperlipidemia, unspecified; E03.9 Hypothyroidism, unspecified; I10 Essential (primary) hypertension; R74.8 Abnormal levels of other serum enzymes; G47.30 Sleep apnea, unspecified
CPT/HCPCS: 83036; 99214

== ENCOUNTER 2023-06-26 14:29 | Outpatient (AMB) | payer OTHER, SELFPAY ==
--- NOTE | 2023-06-26 14:36 | MHC.PC.OV ---
Vital Signs 06/26/23 14:38 Height 5 ft 4 in Weight 214 lb 2 oz BMI 36.8 BP 124/72 Blood Pressure Location Lt brachial Position Sitting Pulse 102 H Pulse Source Pulse Oximeter Pulse Oximetry (%) 99 Oxygen Delivery Method Room Air Intake Visit Reasons: f/u diabetes, hyperlipidemia and thyroid levels Intake Note: Patient is here to follow up on DM, Hyperlipidemia, Thyroid . Pipeline Welder Required: No Director Pharmacovigilance: Not Required per policy Accompanied by: Self / Same As Patient Allergies bupropion [From Wellbutrin] Allergy (Verified 06/26/23 14:38) rash iodine Allergy (Verified 06/26/23 14:38) hives lisinopril Allergy (Verified 06/26/23 14:38) angioadema shellfish derived Allergy (Verified 06/26/23 14:38) hives Medication List - Last Reconciled 06/26/23 by Bashir Sharp MD bisacodyl (Dulcolax (bisacodyl)) 20 mg (4 x 5 mg) PO ONCE 1 day blood sugar diagnostic (FreeStyle Lite Strips) DX: E11.9, test blood sugar once a day, 90 days blood-glucose meter (FreeStyle Lite Meter kit) DX: E11.9, test blood sugar once a day, duration 999 days chlorthalidone 50 mg PO DAILY 90 days dulaglutide 1.5 mg (0.5 mL) subcut QWEEK 28 days epinephrine 0.3 mL IM ONCE PRN escitalopram oxalate 30 mg (1.5 x 20 mg) PO DAILY ezetimibe 10 mg PO DAILY 30 days fenofibrate 54 mg PO DAILY 90 days lancets (FreeStyle Lancets) As directed levothyroxine 125 mcg PO DAILY 90 days losartan 100 mg PO DAILY meloxicam 15 mg PO DAILY 30 days metformin 1,000 mg PO BIDWMEAL peg 3350-electrolytes 236-22.74-6.74 -5.86 gram 240 mL PO Q10M peg 3350-electrolytes 236-22.74-6.74 -5.86 gram (Golytely) 240 mL PO Q10M polyethylene glycol 3350 (Miralax) 238 grams PO ONCE 1 day trazodone 200 mg (2 x 100 mg) PO BEDTIME Tobacco use date assessed: 06/26/23 Dental Screening Dental Screen Date: 06/26/23 Did you have a dental visit in the last 12 months?: Yes Did you have a dental problem in the last 6 months where you did not have access to dental care?: No Was dental information given to patient?: Patient has dentist HPI f/u diabetes, hyperlipidemia and thyroid levels HPI Details 62 y/o female presents to f/u diabetes, hyperlipidemia and thyroid levels. Had increased Trulicity and stopped glipizide. Continued metformin. Had added fenofibrate for triglycerides. Had sent levothyroxine 125mcg for her thyroid. A1c today 06/26/23 worsened from 6.8% to 8.2%. 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 1. Little interest or pleasure in doing things: not at all 2. Feeling down, depressed, or hopeless: not at all 3. Trouble falling or staying asleep, or sleeping too much: not at all 4. Feeling tired or having little energy: not at all 5. Poor appetite or overeating: not at all 6. Feeling bad about yourself - or that you are a failure or have let yourself or your family down: not at all 7. Trouble concentrating on things, such as reading the newspaper or watching television: not at all 8. Moving or speaking so slowly that other people could have noticed. Or the opposite - being so fidgety or restless that you have been moving around a lot more than usual: not at all 9. Thoughts that you would be better off or of hurting yourself in some way: not at all Total score: 0 Depression Screening Interpretation: Negative Depression Screening Done: Yes Source: Developed by Drs. Umair Fleming, Joyce Lea, Aleks Saavedra and colleagues, with an educational nahun from [employer]. Thrive Questionnaire Date Thrive assessed: 06/26/23 I am a: Patient What is your living situation today?: I have a steady place to live Within the past 12 months, did the food you bought not last and you didn't have the money to get more?: Never true Within the past 12 months, did you worry whether your food would run out before you got money to buy more?: Never true Do you have trouble paying for medicines?: No Do you have trouble getting transportation to medical appointments?: No Do you have trouble paying your heating and electricity bill?: No Do you have trouble taking care of your child, family member or friend?: No Do you have trouble with day-to-day activities such as bathing, preparing meals, shopping, managing finances, etc.?: No Are you currently unemployed and looking for a job?: No Are you interested in more education?: No Currently or been in a relationship where the following occur: no concerns reported THRIVE Score: 0 AUDIT C Alcohol Use Questionnaire (AUDIT-C) 1. How often do you have a drink containing alcohol?: 2-4 times a month 2. How many drinks containing alcohol do you have on a typical day when you are drinking?: 1 or 2 Total Score: 2 EPIFANIO-7 AMB Questionnaire EPIFANIO-7 Date EPIFANIO - 7 assessed: 06/26/23 Feeling nervous, anxious, or on edge: 0 = Not at all Not being able to stop or control worryin = Not at all Worrying too much about different things: 0 = Not at all Trouble relaxin = Not at all Being so restless that it is hard to sit still: 0 = Not at all Becoming easily annoyed or irritable: 0 = Not at all Feeling afraid as if something awful might happen: 0 = Not at all Total EPIFANIO-7 score (0-4 normal; 5-9 mild; 10-14 moderate; 15-21 severe): 0 Source: Developed by Drs. Umair Fleming, Joyce Lea, Aleks Saavedra and colleagues, with an educational nahun from [employer]. Review of Systems Const Denies chills, Denies fatigue, Denies fever(s), Denies headache(s) and Denies weakness ENT Denies dizziness and Denies headache(s) Card Denies chest pain, Denies lightheadedness, Denies dyspnea and Denies other (Palpitations) Resp Denies cough, Denies dyspnea, Denies wheezing and Denies other ( shortness of breath) Musc Denies numbness and Denies tingling Neuro Denies dizziness, Denies headache(s), Denies numbness, Denies tingling, Denies paresthesias and Denies weakness Psych Denies anxiety and Denies depression Endo Denies fatigue Aller/Immun Denies wheezing Physical exam (Primary Care) Vital Signs: Last Vital Signs Pulse 102 H 06/26/23 14:38 BP 124/72 06/26/23 14:38 Pulse Ox 99 06/26/23 14:38 Oxygen Delivery Method Room Air 06/26/23 14:38 BMI result Body Mass Index 36.8 Tobacco/Smoking Status: Tobacco use Status Tobacco use date assessed 06/26/23 06/26/23 14:46 Patient Tobacco Use Status Never used Tobacco 06/26/23 14:46 e-Cigarette/Vaping Use Never Used 06/26/23 14:46 PHQ-9: PHQ-9 Score PHQ-9: Total score 0 06/26/23 15:12 Depression Screening Interpretation: Negative Thrive Assessment: Date of Thrive Assessment Date Thrive assessed 06/26/23 06/26/23 14:46 Currently or been in a relationship where the following occur: no concerns reported Const General: no acute distress and well developed Nutritional Appearance: well nourished Orientation/consciousness: patient oriented x3 HENMT Head: Yes normocephalic and Yes atraumatic Eyes General: appearance normal, both eyes and all related structures Pupils: Equal, round and reactive pupils present EOM: EOMs intact bilaterally Resp Effort & Inspection: normal respiratory effort Auscultation: clear to auscultation bilaterally Cardio Rate: regular rate Rhythm: regular rhythm Heart sounds: S1 normal heart sound present, S2 normal heart sound present, no gallops, no murmurs and no rubs Neuro General: patient oriented x3 and gait normal Cranial nerves: Yes Equal, round and reactive pupils present Psych Affect: normal affect Results AMB Hemoglobin A1c AMB Hemoglobin A1c 8.2 % Last Edit by KAYLA Farley on 06/26/23 15:13 Results Reviewed Results Reviewed: Laboratory Last Values Hgb A1c (Clinic) 8.2 % (4.0-6.0) H 06/26/23 14:35 Assessment and Plan Assessment & Plan (1) Essential hypertension: Code(s): I10 - Essential (primary) hypertension Plan: Blood?pressure?124/72. Good?control. Continue?current?medication (2) Diabetes type 2, controlled: Code(s): E11.9 - Type 2 diabetes mellitus without complications Plan: A1c?climbed?from?6.8%?to?8.2%?after?discontinuing?glipizide. Continue?Trulicity?and?metformin?as?prescribed Will?add?back?glipizide?ER?10?mg?once?per?day (3) Hyperlipidemia: Code(s): E78.5 - Hyperlipidemia, unspecified Plan: Had?started?fenofibrate?and?she?is?tolerating?the She?can?get?her?labs?drawn?and?we?can?follow-up?on?this?in?about?a?month (4) Hypothyroidism: Code(s): E03.9 - Hypothyroidism, unspecified Plan: Will?recheck?thyroid?hormone?levels?in?about?a?month (5) Infection of skin: Code(s): L08.9 - Local infection of the skin and subcutaneous tissue, unspecified Plan: Mild?infection?at?umbilicus Will?give?her?a?script?for?mupirocin Orders: Orders Microalbumin, Random (w Creat) Today I10 - Essential (primary) hypertension Free T4 (Free Thyroxine) Today E03.9 - Hypothyroidism, unspecified Triiodothyronine T3 Total Today E03.9 - Hypothyroidism, unspecified Thyroid Stimulating Hormone Today E03.9 - Hypothyroidism, unspecified AMB Hemoglobin A1c Today E11.9 - Type 2 diabetes mellitus without complications Lipid Panel Today E78.5 - Hyperlipidemia, unspecified, Z00.00 - Encounter for general adult medical examination without abnormal findings Comprehensive [place]. Panel Fast Today E78.5 - Hyperlipidemia, unspecified, Z00.00 - Encounter for general adult medical examination without abnormal findings Medications: New mupirocin 2% 1 appl topical BID 15 grams 0RF 10 days Changed From glipizide ER 10 mg PO BID 180 tabs 0RF To glipizide ER 10 mg PO DAILY 90 days 90 tabs 2RF Coding Level of Care Code Est Pt Level 4 (63143) Diagnoses Essential hypertension I10 Diabetes type 2, controlled E11.9 Hyperlipidemia E78.5 Hypothyroidism E03.9 Infection of skin L08.9
[2023-06-26 14:38] VITALS: BP 124/72; PULSE 102; O2SAT 99; BMI 36.8
== END 2023-06-26 15:30 | disposition home or self-care (01) ==
PROVIDERS: PCP Family Medicine; Visit Provider Family Medicine
DX: I10 Essential (primary) hypertension (principal); E11.9 Type 2 diabetes mellitus without complications; E78.5 Hyperlipidemia, unspecified; E03.9 Hypothyroidism, unspecified; L08.9 Local infection of the skin and subcutaneous tissue, unspecified
CPT/HCPCS: 83036; 99214

== ENCOUNTER 2023-07-30 12:36 | Outpatient (REF) | payer OTHER, SELFPAY ==
[2023-07-30 15:08] LABS: Alanine Aminotransferase 36 U/L (0-31); Albumin Level 4.2 g/dL (3.5-5.0); Alkaline Phosphatase 66 U/L (39-117); Anion Gap 16 (12-20); Aspartate Amino Transferase 34 U/L (5-31); Bilirubin Total 0.3 mg/dL (0.0-1.0); Blood Urea Nitrogen 13 mg/dL (9-16); Calcium 9.3 mg/dL (8.4-10.2); Carbon Dioxide 27 mmol/L (22-29); Chloride 97 mmol/L (96-108); Cholesterol 130 mg/dL (<200); Estimated Glomerular Filt Rate 53; Glucose Fasting 282 mg/dL (60-99); HDL Cholesterol 42 mg/dL (>40); LDL Cholesterol Calculated 35 mg/dL (<100); Potassium 3.8 mmol/L (3.3-5.1); Sodium 136 mmol/L (135-145); Total Protein 6.9 g/dL (6.5-8.0); Triglycerides 267 mg/dL (<150)
[2023-07-30 15:26] LABS: Free T4 (Free Thyroxine) 1.09 ng/dL (0.71-1.85); Thyroid Stimulating Hormone 1.52 uIU/mL (0.32-4.0)
[2023-08-03 07:19] LABS: Triiodothyronine T3 Total 90 ng/dL (76-181)
== END 2023-07-30 12:37 | disposition home or self-care (01) ==
LOC: HO.WFDLDS 12:36
PROVIDERS: Visit Provider Family Medicine
DX: Z00.00 Encounter for general adult medical examination without abnormal findings (principal); E03.9 Hypothyroidism, unspecified; E78.5 Hyperlipidemia, unspecified
CPT/HCPCS: 36415; 80053; 80061; 84439; 84443; 84480

== ENCOUNTER 2023-08-08 14:46 | Outpatient (AMB) | payer OTHER, SELFPAY ==
--- NOTE | 2023-08-08 14:56 | A.OFFPC_ITS ---
Vital Signs 08/08/23 15:02 08/08/23 15:08 Height 5 ft 4 in Weight 214 lb BMI 36.7 BP 157/78 H 139/82 Blood Pressure Location Rt brachial Rt brachial Position Sitting Sitting Pulse 88 Pulse Source Pulse Oximeter Temp 98.6 F Temp Source Temporal Artery Scan Pulse Oximetry (%) 97 Oxygen Delivery Method Room Air Intake Visit Reasons: 1 mth follow up Intake Note: One month follow up diabetes Berry Planter Required: No Allergies bupropion [From Wellbutrin] Allergy (Verified 08/08/23 14:57) rash iodine Allergy (Verified 08/08/23 14:57) hives lisinopril Allergy (Verified 08/08/23 14:57) angioadema shellfish derived Allergy (Verified 08/08/23 14:57) hives Tobacco use date assessed: 08/08/23 Dental Screening Dental Screen Date: 06/26/23 Did you have a dental visit in the last 12 months?: Yes Did you have a dental problem in the last 6 months where you did not have access to dental care?: No Was dental information given to patient?: Patient has dentist HPI 1 mth follow up HPI Details 62 y/o female presents to review labs in cluding lipids and thyriod hormones. Triglycerides were high and started fenofibrate previously. Labs were drawn 07/30/23. Reviewed labs with pt. Elevated liver enzymes - AST 34 and ALT 36. Triglycerides 267. TC 130. LDL 35. HDL 42. Triglycerides improved from 369 in March to 267 in July. Thyroid levels are fine - she is on levothyroxine 125 mcg daily. 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 How often do you have a drink containing alcohol?: Monthly or less 2. How many drinks containing alcohol do you have on a typical day when you are drinking?: 1 or 2 3. How often do you have six or more drinks on one occasion?: Never Total Score: 1 EPIFANIO-7 AMB Questionnaire EPIFANIO-7 Date EPIFANIO - 7 assessed: 06/26/23 Source: Developed by Drs. Umair Fleming, Joyce Lea, Aleks Saavedra and colleagues, with an educational nahun from [employer]. Review of Systems Const Denies chills, Denies fatigue, Denies fever(s), Denies headache(s) and Denies weakness ENT Denies dizziness and Denies headache(s) Card Denies chest pain, Denies lightheadedness, Denies dyspnea and Denies other (Palpitations) Resp Denies cough, Denies dyspnea, Denies wheezing and Denies other ( shortness of breath) Musc Denies numbness and Denies tingling Neuro Denies dizziness, Denies headache(s), Denies numbness, Denies tingling, Denies paresthesias and Denies weakness Psych Denies anxiety and Denies depression Endo Denies fatigue Aller/Immun Denies wheezing Physical exam (Primary Care) Vital Signs: Last Vital Signs Temp 98.6 F 08/08/23 15:02 Pulse 88 08/08/23 15:02 BP 139/82 08/08/23 15:08 Pulse Ox 97 08/08/23 15:02 Oxygen Delivery Method Room Air 08/08/23 15:02 BMI result Body Mass Index 36.7 Tobacco/Smoking Status: Tobacco use Status Tobacco use date assessed 08/08/23 08/08/23 15:06 Patient Tobacco Use Status Never used Tobacco 08/08/23 15:06 e-Cigarette/Vaping Use Never Used 08/08/23 15:06 Thrive Assessment: Date of Thrive Assessment Date Thrive assessed 06/26/23 08/08/23 15:06 Const General: no acute distress and well developed Nutritional Appearance: well nourished Orientation/consciousness: patient oriented x3 HENMT Head: Yes normocephalic and Yes atraumatic Eyes General: appearance normal, both eyes and all related structures Pupils: Equal, round and reactive pupils present EOM: EOMs intact bilaterally Resp Effort & Inspection: normal respiratory effort Auscultation: clear to auscultation bilaterally Cardio Rate: regular rate Rhythm: regular rhythm Heart sounds: S1 normal heart sound present, S2 normal heart sound present, no gallops, no murmurs and no rubs Neuro General: patient oriented x3 and gait normal Cranial nerves: Yes Equal, round and reactive pupils present Psych Affect: normal affect Assessment and Plan Assessment & Plan (1) Essential hypertension: Code(s): I10 - Essential (primary) hypertension Plan: Blood?pressure?is?controlled Goal?is?less?than?140/90 No?medication?changes?made?today (2) Hypothyroidism: Code(s): E03.9 - Hypothyroidism, unspecified Plan: Thyroid?hormone?levels?are?all?within?normal?limits Continue?levothyroxine?as?prescribed (3) Hyperlipidemia: Code(s): E78.5 - Hyperlipidemia, unspecified Plan: Triglycerides?were?greate r?than?350?and?we?started?fenofibrate?which?she?has?been?tolerating Triglycerides?now?267 Encouraged?diet?low?in?saturated?fats?and?cholesterol.??Encouraged?good?blood?brady gar?control Continue?fenofibrate Encouraged?weight?loss (4) Diabetes type 2, controlled: Code(s): E11.9 - Type 2 diabetes mellitus without complications Plan: A1c?had?climbed?to?8.2%?and?I?added?back?glipizide Since?then?she?has?also?been?able?to?acquire?Trulicity?again. 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
[2023-08-08 15:02] VITALS: BP 157/78; PULSE 88; TEMP 37; O2SAT 97; BMI 36.7
[2023-08-08 15:08] VITALS: BP 139/82
== END 2023-08-08 15:22 | disposition home or self-care (01) ==
PROVIDERS: PCP Family Medicine; Visit Provider Family Medicine
DX: I10 Essential (primary) hypertension (principal); E03.9 Hypothyroidism, unspecified; E78.5 Hyperlipidemia, unspecified; E11.9 Type 2 diabetes mellitus without complications
CPT/HCPCS: 99214

== ENCOUNTER 2023-08-29 13:54 | Outpatient (AMB) | payer OTHER, SELFPAY ==
--- NOTE | 2023-08-29 13:58 | HO.NEPHOV_ITS ---
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 Intake Note: Patient presents to the office for a new patient evaluation for Sleep Apne Manufacturing Supervisor Required: No Accompanied by: Self / Same As Patient Allergies bupropion [From Wellbutrin] Allergy (Verified 08/29/23 14:03) rash iodine Allergy (Verified 08/29/23 14:03) hives lisinopril Allergy (Verified 08/29/23 14:03) angioadema shellfish derived Allergy (Verified 08/29/23 14:03) hives Medication List - Last Reconciled 08/29/23 by Alicia Keller MD bisacodyl (Dulcolax (bisacodyl)) 20 mg (4 x 5 mg) PO ONCE 1 day blood sugar diagnostic (FreeStyle Lite Strips) DX: E11.9, test blood sugar once a day, 90 days blood-glucose meter (FreeStyle Lite Meter kit) DX: E11.9, test blood sugar once a day, duration 999 days chlorthalidone 50 mg PO DAILY 90 days dulaglutide 1.5 mg (0.5 mL) subcut QWEEK 28 days epinephrine 0.3 mL IM ONCE PRN escitalopram oxalate 30 mg (1.5 x 20 mg) PO DAILY ezetimibe 10 mg PO DAILY 30 days fenofibrate 54 mg PO DAILY 90 days glipizide ER 10 mg PO DAILY 90 days lancets (FreeStyle Lancets) As directed levothyroxine 125 mcg PO DAILY 90 days losartan 100 mg PO DAILY meloxicam 15 mg PO DAILY 30 days metformin 1,000 mg PO BIDWMEAL mupirocin 2% 1 appl topical BID 10 days trazodone 200 mg (2 x 100 mg) PO BEDTIME HPI Comments Details: 62y/o comes for further management of sleep apnea. . Main complaints-MADDIE on CPAP for 20 years and needs a new equipment Sleep questionnaire-with CPAP- she is good . without CPAP Difficulty falling asleep-yes Difficulty staying asleep-yes Number of arousals-2 Snoring-yes Witnessed apneas-yes Gasping arousals-yes Nocturia-yes Vivid dreams- yes Sleep study-yes On CPAP 13cm of water PFS Medical History (Updated 08/29/23 @ 14:18 by Alicia Keller MD) MADDIE on CPAP Depression with anxiety Sleep apnea Insomnia Hyperlipidemia Benign cardiac murmur Hypothyroidism Diabetes type 2, controlled Essential hypertension Surgical History Hx of colonoscopy Social History Housing: House Alcohol intake: current Alcohol intake frequency: 0-2 drinks per day Alcohol type: wine Patient Tobacco Use Status: Never used Tobacco e-Cigarette/Vaping Use: Never Used Second Hand Smoke Exposure: No service: No 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 occupational status: 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 Current occupational exposures/hazards: No Sexual orientation: Straight/Heterosexual Gender identity: Female Cognitive needs: No Hearing needs: No Vision needs: No Physical Exam Vital Signs: Last Vital Signs Pulse 88 08/29/23 14:01 BP 138/64 08/29/23 14:01 Pulse Ox 98 08/29/23 14:01 Oxygen Delivery Method Room Air 08/29/23 14:01 BMI result Body Mass Index 36.8 Const General: cooperative, healthy appearing, no acute distress, well developed and alert Orientation/consciousness: patient oriented x3 HEENT Other: Mallampatti grade 4 Head: Yes normal to inspection Eyes General: appearance normal, both eyes and all related structures Neck Neck: Yes normal visual inspection Neuro General: patient oriented x3 Cognition (Neuro): normal cognition Psych Attitude: cooperative Thought process: Normal thought process present Results Reviewed Nephrology Results: Sodium 136 mmol/L (135-145) 07/30/23 Potassium 3.8 mmol/L (3.3-5.1) 07/30/23 Chloride 97 mmol/L (96-108) 07/30/23 Carbon Dioxide 27 mmol/L (22-29) 07/30/23 BUN 13 mg/dL (9-16) 07/30/23 Creatinine 1.05 mg/dL (0.5-1.4) 07/30/23 Calcium 9.3 mg/dL (8.4-10.2) 07/30/23 Assessment & Plan Assessment & Plan (1) MADDIE on CPAP: Code(s): G47.33 - Obstructive sleep apnea (adult) (pediatric) Category: Medical Plan She has an old equipment more than 5 years old and stops working intermittently I will order a home sleep test for reassessment and order a new CPAP Orders: Orders RT home sleep study Today G47.33 - Obstructive sleep apnea (adult) (pediatric) Coding Level of Care Code New Pt Level 3 (51097) Diagnoses MADDIE on CPAP G47.33
[2023-08-29 14:01] VITALS: BP 138/64; PULSE 88; O2SAT 98; BMI 36.8
[2023-08-31 14:00] VITALS: BMI 36.8
--- NOTE | 2023-08-31 14:00 | MHC.OFFVIS ---
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 Allergies bupropion [From Wellbutrin] Allergy (Verified 08/29/23 14:03) rash iodine Allergy (Verified 08/29/23 14:03) hives lisinopril Allergy (Verified 08/29/23 14:03) angioadema shellfish derived Allergy (Verified 08/29/23 14:03) hives Medication List - Last Reconciled 08/29/23 by Alicia Keller MD bisacodyl (Dulcolax (bisacodyl)) 20 mg (4 x 5 mg) PO ONCE 1 day blood sugar diagnostic (FreeStyle Lite Strips) DX: E11.9, test blood sugar once a day, 90 days blood-glucose meter (FreeStyle Lite Meter kit) DX: E11.9, test blood sugar once a day, duration 999 days chlorthalidone 50 mg PO DAILY 90 days dulaglutide 1.5 mg (0.5 mL) subcut QWEEK 28 days epinephrine 0.3 mL IM ONCE PRN escitalopram oxalate 30 mg (1.5 x 20 mg) PO DAILY ezetimibe 10 mg PO DAILY 30 days fenofibrate 54 mg PO DAILY 90 days glipizide ER 10 mg PO DAILY 90 days lancets (FreeStyle Lancets) As directed levothyroxine 125 mcg PO DAILY 90 days losartan 100 mg PO DAILY meloxicam 15 mg PO DAILY 30 days metformin 1,000 mg PO BIDWMEAL mupirocin 2% 1 appl topical BID 10 days trazodone 200 mg (2 x 100 mg) PO BEDTIME HPI Comments Details: 62y/o female comes for further management of sleep apnea. she was diagnosed with sleep apnea over 10 years ago and has been on CPAP since then and is doing well However she wants anew equipment as her old CPAP shows a message that it is timing out She has h/o snoring frequent arousals, hypersomnia, gasping arousals which were all resolved with CPAP [facility] Medical History MADDIE on CPAP Depression with anxiety Sleep apnea Insomnia Hyperlipidemia Benign cardiac murmur Hypothyroidism Diabetes type 2, controlled Essential hypertension Surgical History Hx of colonoscopy Social History Housing: House Alcohol intake: current Alcohol intake frequency: 0-2 drinks per day Alcohol type: wine Patient Tobacco Use Status: Never used Tobacco e-Cigarette/Vaping Use: Never Used Second Hand Smoke Exposure: No service: No 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 occupational 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: 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 Current occupational exposures/hazards: No Sexual orientation: Straight/Heterosexual Gender identity: Female Cognitive needs: No Hearing needs: No Vision needs: No Physical Exam Vital Signs: Last Vital Signs Pulse 88 08/29/23 14:01 BP 138/64 08/29/23 14:01 Pulse Ox 98 08/29/23 14:01 Oxygen Delivery Method Room Air 08/29/23 14:01 BMI result Body Mass Index 36.8 Const General: cooperative, healthy appearing, no acute distress, well developed and alert Orientation/consciousness: patient oriented x3 HEENT Head: Yes normal to inspection Eyes General: appearance normal, both eyes and all related structures Neck Neck: Yes normal visual inspection Thyroid: Thyroid normal Chest Chest palpation & inspection: normal inspection of the chest Breast/axilla inspection: normal inspection of the breasts (no puckering, dimpling, peau de orange, retraction, discharge, masses) Breast/axilla palpation: normal palpation of the breasts Resp Effort & Inspection: normal respiratory effort GI Inspection: Yes normal to inspection Palpation (GI): Soft to palpation (to palpation) Rectal Exam - Female: deferred General: Yes bladder normal to inspection External Female Exam: normal external appearance and normal appearance of the urethra Speculum Exam - Vagina: normal appearance of the vagina, normal palpation and normal vaginal discharge Speculum Exam - Cervix: normal appearance of the cervix and normal palpation Bimanual exam- vagina & uterus: normal palpation and normal palpation Bimanual Exam- Adnexa, other: normal adnexae and no masses Skin General skin exam: no rashes or lesions noted Neuro Other: Mallampatti grade 4 General: patient oriented x3, gait normal, tone normal, moves all extremities and no focal motor deficits Cranial nerves: Yes Nystagmus not present and Yes Normal facial strength present Cognition (Neuro): normal cognition Gait exam (Neuro): Normal gait present Extrem General: Yes normal to inspection Psych Attitude: cooperative Thought process: Normal thought process present Assessment & Plan Assessment & Plan (1) MADDIE on CPAP: Code(s): G47.33 - Obstructive sleep apnea (adult) (pediatric) Category: Medical Plan I will reevaluate her with Home SLeep test Orders: Orders RT home sleep study 08/29/23 G47.33 - Obstructive sleep apnea (adult) (pediatric) Coding Level of Care Code New Pt Level 3 (20142) Diagnoses MADDIE on CPAP G47.33
== END 2023-08-29 14:23 | disposition home or self-care (01) ==
PROVIDERS: PCP Family Medicine; Visit Provider Psychiatry & Neurology Neurology
DX: G47.33 Obstructive sleep apnea (adult) (pediatric) (principal)
CPT/HCPCS: 99203

== ENCOUNTER → 2023-08-29 13:54 | Outpatient (BNVA) | payer OTHER, SELFPAY | PROVIDERS: PCP Family Medicine; Visit Provider Psychiatry & Neurology Neurology ==

== ENCOUNTER → 2023-10-18 15:05 | Outpatient (REF) | payer OTHER, SELFPAY | LOC: HO.SL 15:05 | PROVIDERS: PCP Family Medicine; Visit Provider Psychiatry & Neurology Neurology | DX: G47.30 Sleep apnea, unspecified (principal) | CPT/HCPCS: 95806 ==

== ENCOUNTER → 2023-10-25 15:00 | Outpatient (BNV) | payer OTHER, SELFPAY | PROVIDERS: PCP Family Medicine; Visit Provider Psychiatry & Neurology Neurology | DX: G47.33 Obstructive sleep apnea (adult) (pediatric) (principal) | CPT/HCPCS: 95806 ==

== ENCOUNTER 2023-12-03 13:28 | Outpatient (AMB) | payer OTHER, SELFPAY ==
--- NOTE | 2023-12-03 13:25 | MHC.PC.OV ---
Vital Signs 12/03/23 14:12 Temp 100.5 F H Pulse Oximetry (%) 98 Oxygen Delivery Method Room Air Intake Visit Reasons: COVID Intake Note: Headache, chills, low grade fever, fatigue, cough, and congestion. Positive home covid test this morning. Allergies bupropion [From Wellbutrin] Allergy (Verified 12/03/23 14:04) rash iodine Allergy (Verified 12/03/23 14:04) hives lisinopril Allergy (Verified 12/03/23 14:04) angioadema shellfish derived Allergy (Verified 12/03/23 14:04) hives Medication List - Last Reconciled 12/03/23 by Sabrina Leal, POLICY OFFICER- bisacodyl (Dulcolax (bisacodyl)) 20 mg (4 x 5 mg) PO ONCE 1 day blood sugar diagnostic (FreeStyle Lite Strips) DX: E11.9, test blood sugar once a day, 90 days blood-glucose meter (FreeStyle Lite Meter kit) DX: E11.9, test blood sugar once a day, duration 999 days chlorthalidone 50 mg PO DAILY 90 days dulaglutide 1.5 mg (0.5 mL) subcut QWEEK 28 days epinephrine 0.3 mL IM ONCE PRN escitalopram oxalate 30 mg (1.5 x 20 mg) PO DAILY ezetimibe 10 mg PO DAILY 30 days fenofibrate 54 mg PO DAILY 90 days glipizide ER 10 mg PO DAILY 90 days lancets (FreeStyle Lancets) As directed levothyroxine 125 mcg PO DAILY 90 days losartan 100 mg PO DAILY meloxicam 15 mg PO DAILY 30 days metformin 1,000 mg PO BIDWMEAL mupirocin 2% 1 appl topical BID 10 days trazodone 200 mg (2 x 100 mg) PO BEDTIME Tobacco use date assessed: 08/08/23 Dental Screening Dental Screen Date: 06/26/23 HPI HPI Comments History of Present Illness Details Telehealth appointment today for this 63-year-old female who tested positive for COVID today. Reports that she was visiting her brother who tested positive for COVID the day that she was leaving the visit with him. Yesterday she began to feel ill. Her symptoms are worse since onset. Symptoms include headache, chills, 100.5, bodyaches, sore throat, congestion, fatigue Denies asthma dx. Would like RX for Paxlovid. All of her listed medications were reviewed for interaction. The below was noted.: Title Thyroid Products / Nirmatrelvir and Ritonavir Risk Rating C: Monitor therapy Summary Nirmatrelvir and Ritonavir may diminish the therapeutic effect of Thyroid Products. Severity Minor Reliability Rating Fair: Multiple reported cases, but no apparent mechanism or confirmatory studies Patient Management Consider monitoring for signs and symptoms of hypothyroidism in patients taking thyroid products with nirmatrelvir and ritonavir. Increases in thyroid product doses may be required to achieve a euthyroid state although the clinical significance of this interaction is unknown, as ritonavir induction of thyroid product metabolism may not be fully apparent during a 5-day treatment course. . Title TraZODone / CY Inhibitors (Strong) Risk Rating D: Consider therapy modification Summary CY Inhibitors (Strong) may increase the serum concentration of TraZODone. Severity Moderate Reliability Rating Good Patient Management Consider the use of a lower trazodone dose and monitor for increased trazodone effects (eg, sedation, QTc prolongation) if combined with strong CY inhibitors. For patients with moderate kidney impairment (eGFR 30 to 59 mL/min)?? The dose is nirmatrelvir 150 mg-ritonavir 100 mg orally twice daily for five days. The dose pack contains one 150 mg nirmatrelvir tablet and one 100 mg?tablet to be taken together for each dose. Plan: Chart review shows her GFR 53 July of 2023. Therefore, Paxlovid we will be sent in renally dosed. She was made aware of the above drug interactions. She was educated to continue the thyroid medication at the same dose, monitor for signs of hypothyroidism. Call primary care to request repeat TSH should she develop any thyroid symptoms. Advised to reduce the dose of trazodone while taking the Paxlovid. She is currently taking 200 mg daily. Reports that she needs to take this and can not go without it. Therefore she was advised to take 100 mg p.o. daily and then okay to resume 200 mg once she completes the Paxlovid course. Advised to monitor for increased sedation and palpitations as these could be signs of increase trazodone concentration. Otherwise advised for supportive care. Rx for Tessalon sent in to help with the cough. Educated on reasons to seek additional care as well as complications of COVID. Follow current CDC guidelines Total time spent caring for the patient today was 20 minutes. This includes time spent before the visit reviewing the chart, time spent during the visit, and time spent after the visit on documentation This note is constructed using voice recognition software. While every effort has been made to ensure accuracy in electrical controls engineer, still errors may have been included Sometimes, these errors may affect the content or meaning of the given sentence . 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 Umair Fleming, Joyce Lea, Aleks Saavedra and colleagues, with an educational nahun from [employer]. Physical exam (Primary Care) Tobacco/Smoking Status: Tobacco use Status Tobacco use date assessed 08/08/23 12/03/23 13:27 Patient Tobacco Use Status Never used Tobacco 12/03/23 13:27 e-Cigarette/Vaping Use Never Used 12/03/23 13:27 Thrive Assessment: Date of Thrive Assessment Date Thrive assessed 06/26/23 12/03/23 13:27 Telehealth Telehealth Telehealth Platform: Telephone Location of provider rendering services: practice address Location of patient: address on file Patient Identification confirmed using: Name, : Yes Telehealth method: voice only Patient verbally consented to treatment: Yes Patient verbally consented to billing insurance company: Yes Patient informed of any privacy concerns related to visit: Yes Minutes spent on Phone/Video with Pt.: 5 Assessment and Plan Assessment & Plan (1) COVID-19: Code(s): U07.1 - COVID-19 Medications: New nirmatrelvir-ritonavir 150-100 mg PO PER PKG DIR 20 ea 0RF benzonatate 100 mg PO TID 10 days PRN 30 caps 1RF cough Coding Level of Care Code Tele Est Pt Level 2 (29051) Diagnoses COVID-19 U07.1
[2023-12-03 14:12] VITALS: TEMP 38.1; O2SAT 98
== END 2023-12-03 14:17 | disposition home or self-care (01) ==
LOC: HO.HMGFM 13:28
PROVIDERS: PCP Family Medicine; Visit Provider Nurse Practitioner Family
DX: U07.1 COVID-19 (principal)
CPT/HCPCS: 99212

== ENCOUNTER → 2024-02-01 15:38 | Outpatient (BNVA) | payer OTHER, SELFPAY | PROVIDERS: PCP Family Medicine | DX: J20.6 Acute bronchitis due to rhinovirus (principal) | CPT/HCPCS: 94640 ==

== ENCOUNTER → 2024-02-01 15:38 | Outpatient (AMB) | payer OTHER, SELFPAY ==
--- NOTE | 2024-02-01 15:42 | MHC.OFFWIV ---
Intake Vital Signs 02/01/24 15:45 02/01/24 16:20 Height 5 ft 4 in Weight 222 lb 2 oz BMI 38.1 BP 142/70 H Blood Pressure Location Rt brachial Position Sitting Respiration 5 L Pulse 106 H 97 Pulse Source Pulse Oximeter Pulse Oximeter Temp 97.4 F Temp Source Oral Pulse Oximetry (%) 95 97 Oxygen Delivery Method Simple Mask Room Air Intake Visit Reasons: EST/ deep cough over a week Intake Note: Patient here complaining of coughing x 1 week Patient Tobacco Use Status: Never used Tobacco Allergies bupropion [From Wellbutrin] Allergy (Verified 02/01/24 16:07) rash iodine Allergy (Verified 02/01/24 16:07) hives lisinopril Allergy (Verified 02/01/24 16:07) angioadema shellfish derived Allergy (Verified 02/01/24 16:07) hives Medication List - Last Reconciled 02/01/24 by Sabrina Leal, RIVET HOLE PUNCHER- bisacodyl (Dulcolax (bisacodyl)) 20 mg (4 x 5 mg) PO ONCE 1 day blood sugar diagnostic (FreeStyle Lite Strips) DX: E11.9, test blood sugar once a day, 90 days blood-glucose meter (FreeStyle Lite Meter kit) DX: E11.9, test blood sugar once a day, duration 999 days chlorthalidone 50 mg PO DAILY 90 days dulaglutide 1.5 mg (0.5 mL) subcut QWEEK 28 days epinephrine 0.3 mL IM ONCE PRN escitalopram oxalate 30 mg (1.5 x 20 mg) PO DAILY ezetimibe 10 mg PO DAILY 30 days fenofibrate 54 mg PO DAILY 90 days glipizide ER 10 mg PO DAILY 90 days lancets (FreeStyle Lancets) As directed levothyroxine 125 mcg PO DAILY 90 days losartan 100 mg PO DAILY meloxicam 15 mg PO DAILY 30 days metformin 1,000 mg PO BIDWMEAL mupirocin 2% 1 appl topical BID 10 days peg 3350-electrolytes 236-22.74-6.74 -5.86 gram 240 mL PO Q10M trazodone 200 mg (2 x 100 mg) PO BEDTIME Do you need a note to return to daycare/school/sports/work: No HPI HPI Comments History of Present Illness Details 63-year-old female here today with chief complaints of a cough. Reports that her cough started 1 week ago. She denies any fever, chills, chest pain, history of asthma, current tobacco use, ear pain, sore throat, runny nose, travel. Has tried several nrrv-atb-[id number] cough suppressants with no relief Exam: Awake alert NAD Sclera and conjunctiva clear bilat Nares with clear nasal drainage, turbinates within normal limits, no sinus tenderness with palpation bilat TM intact and clear bilat MMM, pharynx WNL RRR LS dim throughout, paroxysmal cough noted during exam. Duoneb updraft admin. Pt reports she feels the same no better however LS show improved airflow, no wheezing, crackles. Coughing greatly improved. Sp02 97% P 97 post treatment Plan DuoNeb administered with + effect The patient declined any prednisone saying that she does not want to take this due to adverse effects. Asked about antibiotics, I do not feel this is necessary at this time. After discussion agreed to try Combivent 1 puff q.i.d.. Advised to rinse mouth out after. A short script for cough syrup with codeine also administered. Should she develop any fever, chills or worsening of her symptoms she should follow up otherwise her symptoms should resolve within a few days. This note is constructed using voice recognition software. While every effort has been made to ensure accuracy in delivery engineer, still errors may have been included Sometimes, these errors may affect the content or meaning of the given sentence . Total time spent caring for the patient today was 40 minutes. This includes time spent before the visit reviewing the chart, time spent during the visit, and time spent after the visit on documentation [facility] Medical History MADDIE on CPAP Depression with anxiety Sleep apnea Insomnia Hyperlipidemia Benign cardiac murmur Hypothyroidism Diabetes type 2, controlled Essential hypertension Surgical History Hx of colonoscopy Social History Housing: House Alcohol intake: current Alcohol intake frequency: 0-2 drinks per day Alcohol type: wine Patient Tobacco Use Status: Never used Tobacco e-Cigarette/Vaping Use: Never Used Second Hand Smoke Exposure: No service: No 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 occupational 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: 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 Current occupational exposures/hazards: No Sexual orientation: Straight/Heterosexual Gender identity: Female Cognitive needs: No Hearing needs: No Vision needs: No Physical Exam Vital Signs: Last Vital Signs Temp 97.4 F 02/01/24 15:45 Pulse 106 H 02/01/24 15:45 Resp 5 L 02/01/24 15:45 BP 142/70 H 02/01/24 15:45 Pulse Ox 95 02/01/24 15:45 Oxygen Delivery Method Simple Mask 02/01/24 15:45 BMI result Body Mass Index 38.1 Office Procedures Nebulizer Treatment Nebulizer Treatment 48671-Lhagtavfa/MDI RX initial, or Nebulizer Subsequent Treatment Nebulizer Treatment Nebulizer Treatment 51840-Mmcutnugz/MDI RX initial, or Nebulizer Subsequent Treatment Office Meds ipratropium 0.5 mg-albuterol 3 mg (2.5 mg base)/3 mL nebulization soln Performing Provider: JOSE Zuniga Performing Location: [facility] Administered by: JOSE Zuniga on 02/01/24 16:00 Dose Route Admin Location Dispensed Lot Number Expiration Date [employer] Technology Coordinator 3 mL inhalation office 3 mL [id number] 02/05/24 31307-264-02 [employer] Assessment & Plan Assessment & Plan (1) Acute bronchitis: Code(s): J20.9 - Acute bronchitis, unspecified Qualifiers: Bronchitis organism: rhinovirus Qualified Code(s): J20.6 - Acute bronchitis due to rhinovirus Plan . Orders: Orders AMB Nebulizer Treatment Today J20.9 - Acute bronchitis, unspecified Medications: New ipratropium-albuterol 20-100 mcg/actuation (Combivent Respimat) space evenly during waking hours 1 puff inhalation QID 4 grams 0RF codeine-guaifenesin 10-100 mg/5 mL 10 mL PO ONCE 7 days PRN 70 mL 0RF cough Coding Level of Care Code Est Pt Level 5 (89217) Diagnoses Acute bronchitis due to Rhinovirus J20.6 Bronchitis organism: rhinovirus CPT Codes Nebulizer Treatment - Nebulizer Treatment, initial or subsequent: 83204-Kleknpodx/MDI RX initial, or Nebulizer Subsequent Treatment ([id number]) Nebulizer Treatment - Nebulizer Treatment, initial or subsequent: 60953-Yvylvliea/MDI RX initial, or Nebulizer Subsequent Treatment ([id number])
[2024-02-01 15:45] VITALS: BP 142/70; PULSE 106; RESP 5; TEMP 36.3; O2SAT 95; BMI 38.1
[2024-02-01 16:20] VITALS: PULSE 97; O2SAT 97
== END ==
PROVIDERS: PCP Family Medicine; Visit Provider Nurse Practitioner Family
DX: J20.6 Acute bronchitis due to rhinovirus (principal)

== ENCOUNTER 2024-02-05 15:53 | Outpatient (REF) | payer OTHER, SELFPAY ==
[2024-02-06 10:45] LABS: Influenza A PCR NEGATIVE (Negative); Influenza B PCR NEGATIVE (Negative); Resp Syncy Virus RNA Qual PCR NEGATIVE (Negative); SARS COV2 PCR INHOUSE NEGATIVE (Negative)
== END 2024-02-05 15:54 | disposition home or self-care (01) ==
LOC: HO.LAB 15:53
PROVIDERS: PCP Family Medicine; Visit Provider Nurse Practitioner Family
DX: R09.89 Other specified symptoms and signs involving the circulatory and respiratory systems (principal); R05.9 Cough, unspecified; J20.9 Acute bronchitis, unspecified
CPT/HCPCS: 0241U

== ENCOUNTER 2024-02-05 15:53 | Outpatient (AMB) | payer OTHER, SELFPAY ==
[2024-02-05 16:00] VITALS: BP 146/88; PULSE 110; TEMP 36.8; O2SAT 98; BMI 37.2
--- NOTE | 2024-02-05 16:00 | AM.OFFWIN_ITS ---
Intake Vital Signs 02/05/24 16:00 02/05/24 16:00 Height 5 ft 4 in Weight 217 lb 217 lb BMI 37.2 BP 146/88 H Blood Pressure Location Lt brachial Position Sitting Pulse 110 H Pulse Source Pulse Oximeter Temp 98.2 F Temp Source Temporal Artery Scan Pulse Oximetry (%) 98 Oxygen Delivery Method Room Air Intake Visit Reasons: EP cough Intake Note: Pt presents to the office today for c/o a cough x1.5 weeks. Pt states she was seen at the [facility] walk-in on 02/01/24 and was prescribed an inhaler. Pt states she is not better and would like antibiotics. Patient Tobacco Use Status: Never used Tobacco Allergies bupropion [From Wellbutrin] Allergy (Verified 02/05/24 16:01) rash iodine Allergy (Verified 02/05/24 16:01) hives lisinopril Allergy (Verified 02/05/24 16:01) angioadema shellfish derived Allergy (Verified 02/05/24 16:01) hives HPI HPI Comments History of Present Illness Details 63 y/o female patient who presents to [facility] in clinic with c/o cough x 1.5 weeks. Pt states she was seen at the [facility] walk-in on 02/01/24 and was prescribed an inhaler plus Tylenol with Codeine. Pt states she is not better and would like antibiotics. Denies fevers, chills, nausea or vomiting. 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 Current occupational exposures/hazards: No Sexual orientation: Straight/Heterosexual Gender identity: Female Cognitive needs: No Hearing needs: No Vision needs: No Review of Systems Const All systems reviewed & are unremarkable except as noted in HPI and below Physical Exam Vital Signs: Last Vital Signs Temp 98.2 F 02/05/24 16:00 Pulse 110 H 02/05/24 16:00 BP 146/88 H 02/05/24 16:00 Pulse Ox 98 02/05/24 16:00 Oxygen Delivery Method Room Air 02/05/24 16:00 BMI result Body Mass Index 37.2 Const General: cooperative and no acute distress; No comfortable Nutritional Appearance: obese Orientation/consciousness: patient oriented x3 HEENT Head: Yes normocephalic Ears: external ears normal and TM abnormal bulging and with fluid behind the TM bilateral Face and sinus: Yes sinuses nontender Mouth: moist mucous membranes Throat: Yes postnasal drainage Resp Effort & Inspection: normal respiratory effort, able to speak in complete sentences, no audible wheezes and Actively coughing Auscultation: clear to auscultation bilaterally, no crackles, no rales, no rhonchi and no wheezes Cardio Heart sounds: S1 normal heart sound present and S2 normal heart sound present Neuro General: patient oriented x3 Psych Speech and movement: Normal speech and movement present Assessment & Plan Assessment & Plan (1) Cough in adult: Code(s): R05.9 - Cough, unspecified Plan: Ordered Azithromycin. OTC cough remedies. (2) Acute bronchitis: Code(s): J20.9 - Acute bronchitis, unspecified Qualifiers: Bronchitis organism: rhinovirus Qualified Code(s): J20.6 - Acute bronchitis due to rhinovirus Plan: Ordered Azithromycin. OTC cough remedies. Orders: Orders SARS-CoV2/FLU/RSV Today R09.89 - Other specified symptoms and signs involving the circulatory and respiratory systems Medications: New azithromycin 500 mg PO DAILY 3 days 3 tabs 0RF J20.6 - Acute bronchitis due to rhinovirus, R05.9 - Cough, unspecified benzonatate 100 mg PO TID 90 caps 0RF J20.6 - Acute bronchitis due to rhinovirus, R05.9 - Cough, unspecified Coding Level of Care Code Est Pt Level 3 (80803) Diagnoses Cough in adult R05.9 Acute bronchitis due to Rhinovirus J20.6 Bronchitis organism: rhinovirus Time Spent (min) 15
== END 2024-02-05 16:33 | disposition home or self-care (01) ==
PROVIDERS: PCP Family Medicine; Visit Provider Nurse Practitioner Family
DX: R05.9 Cough, unspecified (principal); J20.6 Acute bronchitis due to rhinovirus

== ENCOUNTER 2024-02-20 13:55 | Outpatient (REF) | payer OTHER, SELFPAY ==
--- NOTE | ~2024-02-20 | MM_ITS ---
EXAMINATION: MM DIAGNOSTIC DIGITAL BREAST TOMOSYNTHESIS, BILATERAL US BREAST LIMITED, RIGHT MAMMOGRAPHY: CLINICAL INFORMATION: Patient complaining of small palpable pea-sized lump in right axilla. Also due for yearly screening. No family history of breast CA. COMPARISON: Outside mammography: 04/15/2019, 08/06/2017, 08/02/2016 ([place]). Mammography: 02/12/2023, 09/22/2021. TECHNIQUE: Digital breast tomosynthesis is performed in both the craniocaudal and mediolateral oblique views along with computer-aided detection (CAD). Synthesized 2D images are generated from the tomosynthesis. FINDINGS: The breasts are heterogeneously dense, which may obscure small masses (ACR BI-RADS breast composition Category c). Post benign biopsy clip noted left breast inferior aspect. No suspicious masses, suspicious grouped calcifications, or areas of architectural distortion in either breast. The overall parenchymal pattern is unchanged from prior exams. Mildly prominent lymph nodes again noted in the posterior 9:00 right breast and axillary tail region, similar to multiple prior exams. Area of palpable concern in the right axilla was marked by a BB marker by the technologist. No definite underlying mammographic abnormality is appreciated. This will be evaluated with ultrasound. ULTRASOUND: CLINICAL INFORMATION: Palpable abnormality, pea-sized lump right axilla. COMPARISON: None relevant. TECHNIQUE: Targeted sonographic evaluation was performed using a high frequency linear transducer. Attention was given to the right axillary region in the region of palpable concern. Selected archived documentation. FINDINGS: RIGHT AXILLA: Approximately 0.75 cm deep to the skin, there is an oval minimally hypoechoic/isoechoic circumscribed mass, good through transmission, wider than tall, no internal color Doppler signal, wider than tall, no surrounding parenchymal changes, measuring 6 x 3 x 7 mm. This finding is most consistent with a small lipoma. It is isoechoic to minimally hypoechoic when compared with subcutaneous fat. This correlates with the palpable focus of concern. No additional abnormalities identified. MM/MM tomosynthesis diagnostic BI IMPRESSION: There are no findings suspicious for malignancy in either breast. Stable examination. Palpable focus in the right axilla corresponds with a 6 x 3 x 7 mm small lipoma. This is benign. No further follow-up recommended. Recommend the patient resume routine annual screening mammography. OVERALL ASSESSMENT: Mammography: BI-RADS 2 - Benign Findings Ultrasound: BI-RADS 2 - Benign Findings RECOMMENDATION: 1 year F/U This patient's information was entered into a reminder system with a target due date for their next mammogram. Electronically signed by: Trevor Duran MD 02/20/2024 05:28 PM EDT
== END 2024-02-20 13:56 | disposition home or self-care (01) ==
LOC: HO.MAMMO 13:55
PROVIDERS: PCP Family Medicine; Visit Provider Family Medicine
DX: N63.31 Unspecified lump in axillary tail of the right breast (principal)
CPT/HCPCS: 76642; 77062; 77066

== ENCOUNTER → 2024-02-20 14:00 | Outpatient (BNV) | payer OTHER, SELFPAY | PROVIDERS: PCP Family Medicine; Visit Provider Radiology Diagnostic Radiology | DX: D17.1 Benign lipomatous neoplasm of skin and subcutaneous tissue of trunk (principal) | CPT/HCPCS: 76642; 77062; 77066 ==

== ENCOUNTER 2024-03-14 14:10 | Outpatient (REF) | payer OTHER, SELFPAY | END 2024-03-14 14:11 | disposition home or self-care (01) | LOC: HO.LAB 14:10 | PROVIDERS: PCP Family Medicine; Visit Provider Family Medicine | DX: Z13.89 Encounter for screening for other disorder (principal) ==

== ENCOUNTER 2024-06-27 13:56 | Outpatient (AMB) | payer OTHER, SELFPAY ==
--- NOTE | 2024-06-27 13:59 | MHC.PC.OV ---
Vital Signs 06/27/24 14:09 Height 5 ft 4 in Weight 214 lb 2 oz BMI 36.8 BP 140/66 H Blood Pressure Location Lt brachial Position Sitting Respiration 16 Pulse 104 H Pulse Source Pulse Oximeter Temp 97.7 F Temp Source Oral Pulse Oximetry (%) 97 Oxygen Delivery Method Room Air Intake Visit Reasons: Diabetes F/U Intake Note: DM follow up Control Center Operator Required: No Allergies bupropion [From Wellbutrin] Allergy (Verified 06/27/24 14:08) rash iodine Allergy (Verified 06/27/24 14:08) hives lisinopril Allergy (Verified 06/27/24 14:08) angioadema shellfish derived Allergy (Verified 06/27/24 14:08) hives Medication List - Last Reconciled 06/27/24 by Bashir Sharp MD bisacodyl (Dulcolax (bisacodyl)) 20 mg (4 x 5 mg) PO ONCE 1 day blood sugar diagnostic (FreeStyle Lite Strips) DX: E11.9, test blood sugar once a day, 90 days blood-glucose meter (FreeStyle Lite Meter kit) DX: E11.9, test blood sugar once a day, duration 999 days chlorthalidone 50 mg PO DAILY 90 days codeine-guaifenesin 10-100 mg/5 mL 10 mL PO ONCE PRN 7 days dulaglutide 1.5 mg (0.5 mL) subcut QWEEK 28 days epinephrine 0.3 mL IM ONCE PRN escitalopram oxalate 30 mg (1.5 x 20 mg) PO DAILY ezetimibe 10 mg PO DAILY 30 days fenofibrate 54 mg PO DAILY 90 days glipizide ER 10 mg PO DAILY 90 days ipratropium-albuterol 20-100 mcg/actuation (Combivent Respimat) 1 puff inhalation QID lancets (FreeStyle Lancets) As directed levothyroxine 125 mcg PO DAILY 90 days losartan 100 mg PO DAILY meloxicam 15 mg PO DAILY 30 days metformin 1,000 mg PO BIDWMEAL mupirocin 2% 1 appl topical BID 10 days peg 3350-electrolytes 236-22.74-6.74 -5.86 gram 240 mL PO Q10M trazodone 200 mg (2 x 100 mg) PO BEDTIME Tobacco use date assessed: 08/08/23 Dental Screening Dental Screen Date: 06/26/23 HPI Diabetes F/U HPI Details 63 y/o female presents to f/u diabetes. Last A1c August of last year was 8.2%. A1c today 06/27/24 6.8%. She notes she has not been taking Trulicity. She is on glipizide 10mg, metformin 1000mg b.i.d. She has not gotten a diabetic eye exam in years. Blood pressure today 140/66, 104p. She notes blood pressure at home have been fine. She is on losartan 100mg, chlorthalidone 50mg daily. 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 Umair Fleming, Joyce Lea, Aleks Saavedra and colleagues, with an educational nahun from [employer]. Review of Systems Const Denies chills, Denies fatigue, Denies fever(s), Denies headache(s) and Denies weakness ENT Denies dizziness and Denies headache(s) Card Denies chest pain, Denies lightheadedness, Denies dyspnea and Denies other (Palpitations) Resp Denies cough, Denies dyspnea, Denies wheezing and Denies other ( shortness of breath) Musc Denies numbness and Denies tingling Neuro Denies dizziness, Denies headache(s), Denies numbness, Denies tingling, Denies paresthesias and Denies weakness Psych Denies anxiety and Denies depression Endo Denies fatigue Aller/Immun Denies wheezing Physical exam (Primary Care) Vital Signs: Last Vital Signs Temp 97.7 F 06/27/24 14:09 Pulse 104 H 06/27/24 14:09 Resp 16 06/27/24 14:09 BP 140/66 H 06/27/24 14:09 Pulse Ox 97 06/27/24 14:09 Oxygen Delivery Method Room Air 06/27/24 14:09 BMI result Body Mass Index 36.8 Tobacco/Smoking Status: Tobacco use Status Tobacco use date assessed 08/08/23 06/27/24 14:01 Patient Tobacco Use Status Never used Tobacco 06/27/24 14:01 e-Cigarette/Vaping Use Never Used 06/27/24 14:01 Thrive Assessment: Date of Thrive Assessment Date Thrive assessed 03/11/24 06/27/24 14:01 Const General: no acute distress and well developed Nutritional Appearance: well nourished Orientation/consciousness: patient oriented x3 HENMT Head: Yes normocephalic and Yes atraumatic Eyes General: appearance normal, both eyes and all related structures Pupils: Equal, round and reactive pupils present EOM: EOMs intact bilaterally Resp Effort & Inspection: normal respiratory effort Auscultation: clear to auscultation bilaterally Cardio Rate: regular rate Rhythm: regular rhythm Heart sounds: S1 normal heart sound present, S2 normal heart sound present, no gallops, no murmurs and no rubs Neuro General: patient oriented x3 and gait normal Cranial nerves: Yes Equal, round and reactive pupils present Psych Affect: normal affect Coding Level of Care Code Est Pt Level 4 (07670) Diagnoses Diabetes type 2, controlled E11.9 Essential hypertension I10 Immunization counseling Z71.85 Assessment & Plan Assessment & Plan (1) Diabetes type 2, controlled: Code(s): E11.9 - Type 2 diabetes mellitus without complications Category: Medical Plan: A1c?6.8%.??Good?control.??Goal?is?less?than?7.0% Continue?current?medication?regimen Removed?Trulicity?from?med?list?as?she?has?not?been?taking?this (2) Essential hypertension: Code(s): I10 - Essential (primary) hypertension Category: Medical Plan: Blood?pressure?is?a?little?elevated.??Goal?is?less?than?140/90 However,?patient's?blood?pressures?at?home?are?typically?130s,?systolic. Continue?current?medication?regimen Watch?salt/sodium?in?diet,?get?regular?exercise,?control?weight?and?get?plenty?of?sleep (3) Immunization counseling: Code(s): Z71.85 - Encounter for immunization safety counseling Category: Medical Plan: Patient?is?concerned[place]regarding[place]outbreaks[place]of[place] She?would?like?immunity?tested. Checking?titers?for?MMR Orders: Orders Lipid Panel Today E78.5 - Hyperlipidemia, unspecified, Z00.00 - Encounter for general adult medical examination without abnormal findings MMR IgG Measles Mumps Rubella Today Z71.85 - Encounter for immunization safety counseling Comprehensive [place]. Panel Fast Today E11.9 - Type 2 diabetes mellitus without complications, Z00.00 - Encounter for general adult medical examination without abnormal findings Free T4 (Free Thyroxine) Today E03.9 - Hypothyroidism, unspecified Triiodothyronine T3 Total Today E03.9 - Hypothyroidism, unspecified Thyroid Stimulating Hormone Today E03.9 - Hypothyroidism, unspecified Microalbumin, Random (w Creat) Today I10 - Essential (primary) hypertension Complete Blood Count Auto Diff Today E03.9 - Hypothyroidism, unspecified, Z00.00 - Encounter for general adult medical examination without abnormal findings Referrals Ophthalmology Referral E11.9 - Type 2 diabetes mellitus without complications Medications: Discontinued dulaglutide Discontinued Reason: Doctor's Order 1.5 mg (0.5 mL) subcut QWEEK 28 days 2 mL 2RF
[2024-06-27 14:09] VITALS: BP 140/66; PULSE 104; RESP 16; TEMP 36.5; O2SAT 97; BMI 36.8
--- OUTSIDE RECORDS SUMMARY | 2024-06-27 14:24 | XMS_ITS | Clinical Summary ---
Author Organization [facility] Address [address] [place] [address] Care Team Providers Care Publications Writer Name Role Phone Pcp, No Primary Care Provider Unavailabl e Allergies Active Allergy Reactions Criticality Noted Date Comments Lisinopril Angioedema High 12/29/2015 Onion Hives Medium 12/29/2015 Seafood Hives Medium 12/29/2015 Medications Medication Sig Dispensed Refills Start Date End Date Status metFORMIN (GLUCOPHAGE-XR) 500 MG 24 hr tablet 0 12/13/2015 Active levothyroxine (SYNTHROID, LEVOTHROID) 150 MCG tablet 0 10/20/2015 Active levothyroxine (SYNTHROID, LEVOTHROID) 125 MCG tablet 0 12/22/2015 Active PROCTOSOL HC 2.5 % rectal cream 0 10/25/2015 Active escitalopram (LEXAPRO) 20 MG tablet Take 20 mg by mouth every morning. 0 11/25/2015 Active losartan (COZAAR) 50 MG tablet 0 12/02/2015 Active Social History Tobacco Use Types Packs/Day Years Used Date Smoking Tobacco: Never Assessed Sex and Gender Information Value Date Recorded Sex Assigned at Not on file Gender Identity Not on file Sexual Orientation Not on file Last Filed Vital Signs Vital Sign Reading Time Taken Comments Blood Pressure 158/92 12/29/2015 7:12 AM EDT Pulse 92 12/29/2015 7:12 AM EDT Temperature 36.8 ??C (98.3 ??F) 12/29/2015 2:34 AM ED T Respiratory Rate 16 12/29/2015 7:12 AM EDT Oxygen Saturation 97% 12/29/2015 7:12 AM EDT Inhaled Oxygen Concentration - - Weight 92.1 kg (203 lb) 12/29/2015 2:34 AM EDT Height 162.6 cm (5' 4 ) 12/29/2015 2:34 AM EDT Body Mass Index 34.84 12/29/2015 2:34 AM EDT Plan of Treatment Health Maintenance Due Date Last Done Comments Hepatitis C Virus Screening 1961 HIV Screening 1974 DTaP/Tdap/Td Vaccines (1 - Tdap) 1980 Pap Smear (Ages 21-65) 1982 Mammogram 2001 Colonoscopy 2006 Pneumococcal Vaccines 50+ (1 of 1 - PCV) 10/29/2011 Zoster (Shingles) Vaccine (1 of 2) 10/29/2011 Influenza Vaccine 12/06/2023 COVID-19 Vaccine ( - 2023-2 5 season) 2024 RSV Vaccine 60 years and old er and Patients (1 - 1-dose 75+ series) 2036 Hepatitis B Vaccines Aged Out No long er eligible based on patient's age to complete this topic Pneumococcal Vaccine: Pediat benson (0-5 Years) and At-Risk Patients (6 to 49 Years) Aged Out No longer eligible b ased on patient's age to complete this topic Care Teams Publications Writer Relationship Specialty Start Date End Date Pcp, No PCP - General General Medicine 12/29/15
== END 2024-06-27 14:35 | disposition home or self-care (01) ==
LOC: HO.HMCFM 13:56
PROVIDERS: PCP Family Medicine; Visit Provider Family Medicine
DX: E11.9 Type 2 diabetes mellitus without complications (principal); I10 Essential (primary) hypertension; Z71.85 Encounter for immunization safety counseling

== ENCOUNTER → 2024-06-27 13:56 | Outpatient (BNVA) | payer OTHER, SELFPAY | PROVIDERS: PCP Family Medicine; Visit Provider Family Medicine | DX: E11.9 Type 2 diabetes mellitus without complications (principal); I10 Essential (primary) hypertension; Z79.84 Long term (current) use of oral hypoglycemic drugs; Z79.899 Other long term (current) drug therapy; Z71.85 Encounter for immunization safety counseling | CPT/HCPCS: 83036 ==

== ENCOUNTER 2024-10-13 15:45 | Outpatient (AMB) | payer OTHER, SELFPAY ==
--- NOTE | 2024-10-13 15:59 | AM.OFFWIN_ITS ---
Intake Vital Signs 10/13/24 16:05 Height 5 ft 4 in Weight 217 lb 2 oz BMI 37.3 BP 138/72 Blood Pressure Location Lt brachial Position Sitting Pulse 108 H Pulse Source Pulse Oximeter Temp 98.3 F Temp Source Core Pulse Oximetry (%) 97 Oxygen Delivery Method Room Air Intake Visit Reasons: EP-lt ear pain, headaches, sore throat Intake Note: Pt has earache, headaches, sore throat, fatigue and difficulty swallowing starting 6 days ago. Patient Tobacco Use Status: Never used Tobacco Allergies lisinopril Allergy (Severe, Verified 10/13/24 16:02) angioadema iodine Allergy (Intermediate, Verified 10/13/24 16:02) hives shellfish derived Allergy (Intermediate, Verified 10/13/24 16:02) hives bupropion [From Wellbutrin] Allergy (Mild, Verified 10/13/24 16:02) rash HPI HPI Comments History of Present Illness Details 63 y/o Female patient who presents to [facility] clinic with c/o Headaches, Sore-throat with difficulty swallowing, Fatigue and left Earache for 6 days. 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 Current occupational exposures/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: No Sexual orientation: Straight/Heterosexual Gender identity: Female Cognitive needs: No Hearing needs: No Vision needs: No Review of Systems Const All systems reviewed & are unremarkable except as noted in HPI and below Physical Exam Vital Signs: Last Vital Signs Temp 98.3 F 10/13/24 16:05 Pulse 108 H 10/13/24 16:05 BP 138/72 10/13/24 16:05 Pulse Ox 97 10/13/24 16:05 Oxygen Delivery Method Room Air 10/13/24 16:05 BMI result Body Mass Index 37.3 Const General: no acute distress Nutritional Appearance: overweight Orientation/consciousness: patient oriented x3 HEENT Head: Yes normocephalic Ears: external ears normal, TM abnormal (Left TM erythematous, bulging and Blood present after removal FB) with fluid behind the TM on the right and unable to visualize TM (Foreign Body seen) on the left General nose exam: Normal external nose present Face and sinus: Yes sinuses nontender Mouth: moist mucous membranes Throat: Yes tonsils normal and Yes uvula midline Resp Effort & Inspection: normal respiratory effort Auscultation: clear to auscultation bilaterally Cardio Heart sounds: S1 normal heart sound present and S2 normal heart sound present Neuro General: patient oriented x3 Office Procedures Cerumen Removal Details: No cerumen impaction. Did Left ear irrigation to Aid in FB expulsion. From which ear canal was the cerumen removed: left Removal: irrigation and otoscope w/curette Notes: patient tolerated procedure well [id number] Irrigation/Lavage Results AMB Rapid Strep AMB Rapid Strep Negative Last Edit by Marques Vo CMA on 10/13/24 16 :36 Assessment & Plan Assessment & Plan (1) Foreign body in left ear: Code(s): T16.2XXA - Foreign body in left ear, initial encounter Qualifiers: Encounter type: initial encounter Qualified Code(s): T16.2XXA - Foreign body in left ear, initial encounter Plan: Pt had a small clear plastic Cup cover from her Earing Aid stuck inside her left Ear Canal. Performed Ear Irrigation to aid on FB expulsion - cup cover came out successful. TM intact, mild redness with bleeding after removal. Ordered Abx Otic drops for 5 days. Rapid Strep negative. Orders: Orders AMB Rapid Strep Screen Today Z13.9 - Encounter for screening, unspecified Medications: New ciprofloxacin-dexamethasone 0.3-0.1 % 4 drps otic (ear) left BID 5 days 7.5 mL 0RF T16.2XXA - Foreign body in left ear, initial encounter Coding Level of Care Code Est Pt Level 4 (43565) Diagnoses Foreign body of left ear, initial encounter T16.2XXA Encounter type: initial encounter CPT Codes Office Procedure - CPT: 67097-Rfd Irrigation/Lavage ([id number]) Time Spent (min) 20
[2024-10-13 16:05] VITALS: BP 138/72; PULSE 108; TEMP 36.8; O2SAT 97; BMI 37.3
--- OUTSIDE RECORDS SUMMARY | 2024-10-13 17:26 | XMS_ITS | Clinical Summary ---
Author Organization [facility] Address [address] [place] [address] Care Team Providers Care Mission Planner Name Role Phone Pcp, No Primary Care Provider Unavailabl e Allergies Active Allergy Reactions Criticality Noted Date Comments Lisinopril Angioedema High 12/29/2015 Onion Hives Medium 12/29/2015 Seafood Hives Medium 12/29/2015 Medications metFORMIN (GLUCOPHAGE-XR) 500 MG 24 hr tablet 0 12/13/2015 Active levothyroxine (SYNTHROID, LEVOTHROID) 150 MCG tablet 0 10/20/2015 Active levothyroxine (SYNTHROID, LEVOTHROID) 125 MCG tablet 0 12/22/2015 Active PROCTOSOL HC 2.5 % rectal cream 0 10/25/2015 Acti ve escitalopram (LEXAPRO) 20 MG tablet Take 20 mg by mouth every morning. 0 11/25/2015 Active losartan (COZAAR) 50 MG tablet 0 12/02/2015 Active Social History Tobacco Use Types Packs/Day Years Used Date Smoking Tobacco: Never Assessed Comments No Sex and Gender Information Value Date Recorded Sex Assigned at Not on file Legal Sex Female 2:32 AM EDT Gender Identity Not on file Sexual Orientation [...] Zoster (Shingles) Vaccine (1 of 2) 10/29/2011 COVID-19 Vaccine (1 - 2023-2 5 season) 2024 Influenza Vaccine 12/05/2024 RSV Vaccine 60 years and old er and Patients (1 - 1-dose 75+ series) 2036 Hepatitis B Vaccines Aged Out No long er eligible based on patient's age to complete this topic Insurance [facility] FOR LIFE Care Teams Mission Planner Relationship Specialty Start Date End Date Pcp, No PCP - General General Medicine 12/29/15
== END 2024-10-13 16:43 | disposition home or self-care (01) ==
PROVIDERS: PCP Family Medicine; Visit Provider Nurse Practitioner Family
DX: T16.2XXA Foreign body in left ear, initial encounter (principal); J02.9 Acute pharyngitis, unspecified

== ENCOUNTER → 2024-10-13 15:45 | Outpatient (BNVA) | payer OTHER, SELFPAY | PROVIDERS: PCP Family Medicine; Visit Provider Nurse Practitioner Family | DX: T16.2XXA Foreign body in left ear, initial encounter (principal) | CPT/HCPCS: 69200; 69209; 87880; 99212 ==

== ENCOUNTER 2024-12-18 16:29 | Outpatient (REF) | payer OTHER, SELFPAY ==
--- NOTE | ~2024-12-18 | XR_ITS ---
CLINICAL HISTORY: NECK PAIN --- Additional Notes or Special Instructions: WO, Patient states tingling going down left arm into finger tips for the past 2 weeks. Did a Fuchs view to visualize the odontoid. 6 views cervical spine Comparison: None provided Findings: Normal vertebral body alignment. No acute fractures or dislocation. There is disc space narrowing C5-C6 and C6-C7. There is 2 mm anterior listhesis C4 on C5. There is multilevel uncinate hypertrophy. There is mild facet spondylosis. There is mild multilevel foraminal stenoses. No prevertebral soft tissue swelling. IMPRESSION: Multilevel spondylosis. No acute fractures. This document has been electronically signed by: Umair Mcgarry MD on 12/19/2024 08:52:59
== END 2024-12-18 16:30 | disposition home or self-care (01) ==
LOC: HO.XRAY 16:29
PROVIDERS: PCP Family Medicine; Visit Provider Chiropractor
DX: M54.2 Cervicalgia (principal)
CPT/HCPCS: 72050

== ENCOUNTER → 2024-12-18 16:41 | Outpatient (BNV) | payer OTHER, SELFPAY | PROVIDERS: PCP Family Medicine; Visit Provider Radiology Diagnostic Radiology | DX: M47.812 Spondylosis without myelopathy or radiculopathy, cervical region (principal) | CPT/HCPCS: 72050 ==

== ENCOUNTER 2025-01-19 16:31 | Outpatient (AMB) | payer OTHER, SELFPAY ==
[2025-01-19 16:33] VITALS: BP 142/78; PULSE 100; O2SAT 99; BMI 37.4
--- NOTE | 2025-01-19 16:33 | MHC.PC.OV ---
Vital Signs 01/19/25 16:33 Height 5 ft 4 in Weight 218 lb BMI 37.4 BP 142/78 H Blood Pressure Location Rt brachial Position Sitting Pulse 100 Pulse Source Pulse Oximeter Pulse Oximetry (%) 99 Oxygen Delivery Method Room Air Intake Visit Reasons: follow up for diabetes Allergies lisinopril Allergy (Severe, Verified 01/19/25 16:37) angioadema iodine Allergy (Intermediate, Verified 01/19/25 16:37) hives shellfish derived Allergy (Intermediate, Verified 01/19/25 16:37) hives bupropion (From Wellbutrin) Allergy (Mild, Verified 01/19/25 16:37) rash Medication List - Last Reconciled 01/19/25 by Bashir Sharp MD blood sugar diagnostic (FreeStyle Lite Strips) DX: E11.9, test blood sugar once a day, 90 days blood-glucose meter (FreeStyle Lite Meter kit) DX: E11.9, test blood sugar once a day, duration 999 days chlorthalidone 50 mg PO DAILY 90 days epinephrine 0.3 mL IM ONCE PRN escitalopram oxalate 30 mg (1.5 x 20 mg) PO DAILY fenofibrate 54 mg PO DAILY 90 days glipizide ER 10 mg PO DAILY 90 days lancets (FreeStyle Lancets) As directed levothyroxine 125 mcg PO DAILY 90 days losartan 100 mg PO DAILY metformin 1,000 mg PO BIDWMEAL mupirocin 2% 1 appl topical BID 10 days trazodone 200 mg (2 x 100 mg) PO BEDTIME Tobacco use date assessed: 01/19/25 Dental Screening Dental Screen Date: 01/19/25 Did you have a dental visit in the last 12 months?: Yes Did you have a dental problem in the last 6 months where you did not have access to dental care?: No Was dental information given to patient?: Patient has dentist HPI follow up for diabetes HPI Details 64 y/o female presents to f/u hypertension, diabetes, HLD. Last A1c 06/27/24 6.8%. A1c today worsened to 8.0%. She is on metformin 1000mg b.i.d, glipizide 10mg daily. No recent lipid panel to review. Blood pressure today 142/78, 100p. She is on losartan 100mg daily. Pt notes she has been drinking EtOH again. 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 1. Little interest or pleasure in doing things: not at all 2. Feeling down, depressed, or hopeless: not at all 3. Trouble falling or staying asleep, or sleeping too much: not at all 4. Feeling tired or having little energy: not at all 5. Poor appetite or overeating: not at all 6. Feeling bad about yourself - or that you are a failure or have let yourself or your family down: not at all 7. Trouble concentrating on things, such as reading the newspaper or watching television: not at all 8. Moving or speaking so slowly that other people could have noticed. Or the opposite - being so fidgety or restless that you have been moving around a lot more than usual: not at all 9. Thoughts that you would be better off or of hurting yourself in some way: not at all Total score: 0 Depression Screening Interpretation: Negative Depression Screening Done: Yes 67966 - PHQ-9 Billing: Yes Source: Developed by Drs. Umair Fleming, Joyce Lea, Aleks Saavedra and colleagues, with an educational nahun from [employer]. Thrive Questionnaire Date Thrive assessed: 01/19/25 I am a: Patient What is your living situation today?: I have a steady place to live Within the past 12 months, did the food you bought not last and you didn't have the money to get more?: Never true Within the past 12 months, did you worry whether your food would run out before you got money to buy more?: Never true Do you have trouble paying for medicines?: No Do you have trouble getting transportation to medical appointments?: No Do you have trouble paying your heating and electricity bill?: No Do you have trouble taking care of your child, family member or friend?: No Do you have trouble with day-to-day activities such as bathing, preparing meals, shopping, managing finances, etc.?: No Are you currently unemployed and looking for a job?: No Are you interested in more education?: No Please select the resources that you would like help with: None Currently or been in a relationship where the following occur: No concerns reported THRIVE Score: 0 AUDIT C Alcohol Use Questionnaire (AUDIT-C) 1. How often do you have a drink containing alcohol?: 4 or more times a week 2. How many drinks containing alcohol do you have on a typical day when you are drinking?: 5 or 6 3. How often do you have six or more drinks on one occasion?: Daily or almost daily Total Score: 10 EPIFANIO-7 AMB Questionnaire EPIFANIO-7 Date EPIFANIO - 7 assessed: 01/19/25 Feeling nervous, anxious, or on edge: 0 = Not at all Not being able to stop or control worryin = Not at all Worrying too much about different things: 0 = Not at all Trouble relaxin = Nearly every day Being so restless that it is hard to sit still: 0 = Not at all Becoming easily annoyed or irritable: 0 = Not at all Feeling afraid as if something awful might happen: 0 = Not at all Total EPIFANIO-7 score (0-4 normal; 5-9 mild; 10-14 moderate; 15-21 severe): 3 Source: Developed by Drs. Umair Fleming, Joyce Lea, Aleks Saavedra and colleagues, with an educational nahun from [employer]. EPIFANIO-7 Assessment Billing EPIFANIO-7 Assessment Tool: EPIFANIO-7 Assessment 78292 Review of Systems Const Denies chills, Denies fatigue, Denies fever(s), Denies headache(s) and Denies weakness ENT Denies dizziness and Denies headache(s) Card Denies dyspnea Resp Denies cough, Denies dyspnea, Denies wheezing and Denies other (shortness of breath) Musc Denies numbness and Denies tingling Neuro Denies dizziness, Denies headache(s), Denies numbness, Denies tingling and Denies weakness Psych Denies anxiety and Denies depression Endo Denies fatigue Aller/Immun Denies wheezing Physical exam (Primary Care) Vital Signs: Last Vital Signs Pulse 100 01/19/25 16:33 BP 142/78 H 01/19/25 16:33 Pulse Ox 99 01/19/25 16:33 Oxygen Delivery Method Room Air 01/19/25 16:33 BMI result Body Mass Index 37.4 Tobacco/Smoking Status: Tobacco use Status Tobacco use date assessed 01/19/25 01/19/25 16:39 Patient Tobacco Use Status Never used Tobacco 01/19/25 16:39 e-Cigarette/Vaping Use Never Used 01/19/25 16:39 PHQ-9: PHQ-9 Score PHQ-9: Total score 0 01/19/25 16:48 Depression Screening Interpretation: Negative Thrive Assessment: Date of Thrive Assessment Date Thrive assessed 01/19/25 01/19/25 16:39 Currently or been in a relationship where the following occur: No concerns reported Const General: well developed; No acute distress Nutritional Appearance: well nourished Orientation/consciousness: patient oriented x3 HENMT Head: Yes normocephalic and Yes atraumatic Eyes General: appearance normal, both eyes and all related structures Pupils: Equal, round and reactive pupils present EOM: EOMs intact bilaterally Resp Effort & Inspection: normal respiratory effort Auscultation: clear to auscultation bilaterally Cardio Rate: regular rate Rhythm: regular rhythm Heart sounds: S1 normal heart sound present, S2 normal heart sound present, no gallops, no murmurs and no rubs Neuro General: patient oriented x3 and gait normal Cranial nerves: Yes Equal, round and reactive pupils present Psych Affect: normal affect Results AMB Hemoglobin A1c AMB Hemoglobin A1c 8.0 % Last Edit by Renuka Chu CMA on 01/19/25 16:51 Results Reviewed Results Reviewed: Laboratory Last Values Hgb A1c (Clinic) 8.0 % (4.0-6.0) H 01/19/25 16:39 Coding Level of Care Code Est Pt Level 4 (90355) Diagnoses Essential hypertension I10 Hyperlipidemia E78.5 Diabetes type 2, controlled E11.9 Alcohol abuse F10.10 Additional Codes EPIFANIO-7 Assessment Billing - EPIFANIO-7 Assessment Tool: EPIFANIO-7 Assessment 06484 ([id number]) PHQ-9 - 17701 - PHQ-9 Billing: Yes ([id number]) Assessment & Plan Assessment & Plan (1) Essential hypertension: Code(s): I10 - Essential (primary) hypertension Category: Medical Plan: Blood pressure is a little too high and heart rate is a little elevated. Likely secondary to alcohol withdrawal - see below (2) Hyperlipidemia: Code(s): E78.5 - Hyperlipidemia, unspecified Category: Medical Plan: She will get labs drawn and we will follow-up at next visit (3) Diabetes type 2, controlled: Code(s): E11.9 - Type 2 diabetes mellitus without complications Category: Medical Plan: A1c has risen from 6.8% to 8.0%. She is taking metformin and glipizide though she misses doses. She had been on Trulicity in the past but has not been taking this Offered to restart Trulicity but patient says she wants to stop drinking because she thinks her blood sugars will normalize when she does. Sending a script for Trulicity. She will check her blood sugars and if they are still not well controlled she will start Trulicity regardless of whether she is able to with drinking not. (4) Alcohol abuse: Code(s): F10.10 - Alcohol abuse, uncomplicated Category: Social Hx Plan: Patient is drinking about 2 bottles of wine each evening She wants to quit drinking cold turkey and I want her that this requires caution. Offered to refer her to the [facility] but she wants to work on this herself 1st. Will give her a script for clonidine which can help with withdrawal symptoms and also her blood pressure and heart rate. Nevertheless, warned her that she is having severe symptoms she may need to wean her drinking more gradually and may help from specialist. Patient understands Orders: Orders AMB Hemoglobin A1c Today Z13.9 - Encounter for screening, unspecified Medications: New clonidine HCl 0.1 mg PO TID 90 tabs 1RF 30 days dulaglutide (Trulicity) 0.75 mg (0.5 mL) subcut QWEEK 2 mL 3RF 28 days
--- OUTSIDE RECORDS SUMMARY | 2025-01-19 21:30 | XMS_ITS | Clinical Summary ---
Author Organization [facility] Address [address] [place] [address] Care Team Providers Care Clinical Educator Name Role Phone Pcp, No Primary Care [...] 92 12/29/2015 7:12 AM EDT Temperature 36.8 C (98.3 F) 12/29/2015 2:34 AM EDT Respiratory Rate 16 12/29/2015 7:12 AM EDT [...] Vaccine (1 of 2) 10/29/2011 Influenza Vaccine 12/05/2024 COVID-19 Vaccine (1 - 2023-2 5 season) 2025 RSV Vaccine 60 years and old er and Patients (1 - 1-dose 75+ series) 2036 Hepatitis B Vaccines Aged Out No long er eligible based on patient's age to complete this topic Insurance [facility] Care Teams Clinical Educator Relationship Specialty Start Date End Date Pcp, No PCP - General General Medicine 12/29/15
--- OUTSIDE RECORDS SUMMARY | 2025-01-19 21:30 | XMS_ITS | Clinical Summary ---
Author Organization [facility] Address [address] [address] Phone Care Team Providers Care Licsw Name Role Phone Unknown, Unknown MD Primary Care Provider Unavai lable Allergies Active Allergy Reactions Criticality Noted Date Comments Amoxicillin 09/14/2016 Drug rash Bupropion Rash Low 04/24/2016 Iodine Rash,Hives High 07/18/2011 Lisinopril Anaphylaxis,Angioedema High 07/18/2011 Onion Hives,Swelling Medium 08/15/2013 Shellfish Containing Products Hives,Rash Medium 08/15/2013 Medications ibuprofen (ADVIL,MOTRIN ) 800 MG tablet Take 800 mg by mouth. 12 Active albuterol 90 mcg/actuation inhaler Inhale 2 puffs into the lungs. 03/05/20 19 Active losartan (COZAAR) 100 MG tablet Take 100 mg by mouth. 19 Active metFORMIN (GLUCOPHAGE) 500 MG tablet Take 1,000 mg by mouth. 12/28/19 19 Active glipiZIDE (GLUCOTROL) 5 MG 24 hr tablet Take 10 mg by mouth. 0 19 Active hydroCHLOROth iazide (HYDRODIURIL) 25 MG tablet HYDROCHLOROTHIAZIDE 25 MG TABS Active lancets (FREESTYLE) 28 gauge Misc Test bs daily 10/24/19 18 Active levothyroxine (SYNTHROID, LEVOTHROID) 150 MCG tablet TAKE 1 TABLET BY MOUTH DAILY (PLEASE MAKE AN APPOINTMENT WITH YOUR DOCTOR FOR MORE REFILLS) 10/20/19 16 Active ondansetron (ZOFRAN) 4 MG tablet Take 4 mg by mouth. 06/11/19 19 Active escitalopram oxalate (LEXAPRO) 20 MG tablet Take 20 mg by mouth. 0 16 Active EPINEPHrine (EPIPEN 2-GENET) 0.3 mg/0.3 mL auto-injector Inject 1 Device as directed. 09/04/19 18 Active chlorthalidon e (HYGROTON) 25 MG tablet Take 25 mg by mouth. 0 19 Active blood-glucose meter (GLUCOSE MONITORING KIT) kit Test BS daily 10/24/19 18 Active blood sugar diagnostic (FREESTYLE LITE) Strp strips 1 strip. 04/15/20 18 Active Social History Tobacco Use Types Packs/Day Years Used Date Smoking Tobacco: Former Smokeless Tobacco: Never Education Answer Date Recorded Are you interested in more education? Not on jef e 09/01/2022 Are you concerned about learning? Not on file 09/01/2022 No 09/01/2022 No 09/01/2022 Digital Access Answer Date Recorded No 09/29/2022 No 09/29/2022 No 09/29/2022 Reliable internet access at home? Not on file 09/29/2022 Device with a working camera? Not on file Comments Unknown Sex and Gender Information Value Date Recorded Sex Assigned at Not on file Legal Sex Female 8:33 PM EDT Gender Identity Not on file Sexual Orientation Not on file Last Filed Vital Signs Vital Sign Reading Time Taken Comments Blood Pressure 138/80 03/07/2019 7:47 PM EDT Pulse 96 03/07/2019 7:47 PM EDT Temperature 37.1 C (98.7 F) 03/07/2019 7:47 PM EDT Respiratory Rate - - Oxygen Saturation 96% 03/07/2019 7:47 PM EDT Inhaled Oxygen Concentration - - Weight 95.3 kg (210 lb) 03/07/2019 7:47 PM EDT Height 162.6 cm (5' 4 ) 07/18/2011 4:24 PM EDT Body Mass Index 36.05 07/18/2011 4:24 PM EDT Plan of Treatment Health Maintenance Due Date Last Done Comments CREATININE LEVEL 1961 LIPID PANEL 1961 POTASSIUM LEVEL 1961 TSH LEVEL 1961 DEPRESSION SCREENING 1973 SMOKING Hx and SMOKELESS TOBACCO SCREENING 1974 HEPATITIS C SCREENING 10/29/1979 HIV ONE-TIME SCREENING (18-65 YEARS) 10/29/1979 PAP SMEAR 1982 MAMMOGRAM 2001 COLOGUARD 2006 COLONOSCOPY 2006 COLORECTAL CANCER SCREENING 2006 FIT TEST 2006 FOBT 2006 SIGMOIDOSCOPY 2006 VIRTUAL COLONOSCOPY 2006 ZOSTER VACCINES (1 of 2) 10/29/2011 PNEUMOCOCCAL VACCINES (50+ years) (2 of 2 - PPSV23) 02/10/2016 02/09/2015 Adult Td,Tdap Booster 11/22/2021 11/23/2011, 012 INFLUENZA VACCINE (#1) 2024 , 04/01/2019, 02/13/2018, Additional history exists COVID-19 VACCINE (3 - 2024- season) 2025 05/20/2020, 04/29/2020 RSV VACCINE (1 - 1-dose 75+ series) 2036 HEPATITIS A VACCINES Aged Out No long er eligible based on patient's age to complete this topic HIB VACCINES Aged Out No longer eligi ble based on patient's age to complete this topic MENINGOCOCCAL VACCINES (ACWY) Aged Out No longer eligible based on patient's age to complete this topic MENINGOCOCCAL VACCINES (B) Aged Out N o longer eligible based on patient's age to complete this topic Medical Devices Not on file [place] [address] [address] [address] FAMILY [employer]AN [employer] [place] [address] [place] [address] [employer] [employer] [place] [address] [place] [address] [address] [address] [address] [place] [address] HEALTH PLAN [facility] FAMILY [employer] PLAN Care Teams Licsw Relationship Specialty Start Date End Date Unknown, Unknown, PCP - General 03/24/19 Additional Source Comments The information contained in this document represents components of the legal health record. It is not the complete legal health record.[facility]
== END 2025-01-19 17:05 ==
LOC: HO.HMCFM 16:32
PROVIDERS: PCP Family Medicine; Visit Provider Family Medicine
DX: I10 Essential (primary) hypertension (principal); E78.5 Hyperlipidemia, unspecified; E11.9 Type 2 diabetes mellitus without complications; F10.10 Alcohol abuse, uncomplicated; Z13.9 Encounter for screening, unspecified

== ENCOUNTER → 2025-01-19 16:31 | Outpatient (BNVA) | payer OTHER, SELFPAY | PROVIDERS: PCP Family Medicine; Visit Provider Family Medicine | DX: I10 Essential (primary) hypertension (principal); E11.9 Type 2 diabetes mellitus without complications; E78.5 Hyperlipidemia, unspecified; F10.10 Alcohol abuse, uncomplicated | CPT/HCPCS: 83036; 96127; 99212 ==

== ENCOUNTER 2025-02-24 13:52 | Outpatient (REF) | payer OTHER, SELFPAY ==
--- OUTSIDE RECORDS SUMMARY | 2025-02-24 18:36 | XMS_ITS | Clinical Summary ---
Author Organization [facility] Address [address] [place] [address] Care Team Providers Care Electronics Instructor Name Role Phone Pcp, No Primary Care [...] - 2023-2 5 season) 2025 RSV Vaccine 50 years and old er and Patients (1 - 1-dose 75+ series) 2036 Hepatitis B Vaccines Aged Out No long er eligible based on patient's age to complete this topic Insurance [facility] Care Teams Electronics Instructor Relationship Specialty Start Date End Date Pcp, No PCP - General General Medicine 12/29/15
--- OUTSIDE RECORDS SUMMARY | 2025-02-24 18:36 | XMS_ITS | Clinical Summary ---
Author Organization [facility] Address [address] [address] Phone Care Team Providers Care Stain Dipper Name Role Phone Unknown, Unknown MD Primary [...] topic Medical Devices Not on file [place] [id number] FAMILY [employer] PLAN [employer] [place] [address] FAMILY [employer] PLAN [employer] [place] [address] [address] [place] [address] [address] [place] [address] HEALTH PLAN [facility] FAM[employer]AN Care Teams Stain Dipper Relationship Specialty Start Date End Date Unknown, Unknown, PCP - General 03/24/19 Additional Source Comments The information contained in this document represents components of the legal health record. It is not the complete legal health record.[facility]
== END 2025-02-24 13:53 | disposition home or self-care (01) ==
LOC: HO.MAMMO 13:52
PROVIDERS: PCP Family Medicine; Visit Provider Family Medicine
DX: Z12.31 Encounter for screening mammogram for malignant neoplasm of breast (principal)
CPT/HCPCS: 77063; 77067

== ENCOUNTER → 2025-02-24 14:00 | Outpatient (BNV) | payer OTHER, SELFPAY | PROVIDERS: PCP Family Medicine; Visit Provider Internal Medicine | DX: Z12.31 Encounter for screening mammogram for malignant neoplasm of breast (principal) | CPT/HCPCS: 77063; 77067 ==

== ENCOUNTER 2025-04-20 13:41 | Outpatient (REF) | payer OTHER, SELFPAY ==
[2025-04-20 18:03] LABS: MANUAL DIFF FLAG NO
[2025-04-20 18:15] LABS: Hematocrit 36.3 % (37.0-47.0); Hemoglobin 12.3 g/dl (12.0-16.0); Imm Gran Abs Auto 0.02 X10*3/uL (0.00-0.03); Imm Gran Pct Auto 0.3 % (0.0-0.4); Lymphocytes Absolute Auto 1.6 X10*3/uL (1.2-4.9); Mean Corpuscular HGB Conc 33.9 g/dl (31.0-35.0); Mean Corpuscular Hemoglobin 32.7 pg (27.0-33.0); Mean Corpuscular Volume 96.5 fL (80.0-98.0); NRBC Abs Auto 0.000 X10*3/uL (0.0-0.012); NRBC Pct Auto 0.0 /100WBC (0.0-0.2); Platelet Count 278 X10*3/uL (160-400); Red Blood Count 3.76 X10*6/uL (4.20-5.50); White Blood Count 8.0 X10*3/uL (4.8-10.8)
[2025-04-20 19:20] LABS: Alanine Aminotransferase 26 U/L (0-31); Albumin Level 4.5 g/dL (3.5-5.0); Alkaline Phosphatase 56 U/L (39-117); Anion Gap 14 (12-20); Aspartate Amino Transferase 31 U/L (5-31); Blood Urea Nitrogen 14 mg/dL (9-16); Calcium 10.1 mg/dL (8.4-10.2); Carbon Dioxide 28 mmol/L (22-29); Chloride 98 mmol/L (96-108); Cholesterol 170 mg/dL (<200); Estimated Glomerular Filt Rate 51; HDL Cholesterol 33 mg/dL (>40); Potassium 4.2 mmol/L (3.3-5.1); Sodium 136 mmol/L (135-145); Total Protein 7.7 g/dL (6.5-8.0); Triglycerides 198 mg/dL (<150)
[2025-04-20 19:28] LABS: Free T4 (Free Thyroxine) 1.37 ng/dL (0.71-1.85); Thyroid Stimulating Hormone 0.20 uIU/mL (0.32-4.0)
--- OUTSIDE RECORDS SUMMARY | 2025-04-20 19:56 | XMS_ITS | Clinical Summary ---
Author Organization [facility] Address [address] [address] Phone Care Team Providers Care Slipman Name Role Phone Unknown, Unknown MD Primary [...] VACCINES (50+ years) (2 of 2 - PCV20 or PCV21) 02/10/2016 02/09/2015 Adult Td,Tdap Booster 11/22/2021 11/23/2011, 012 INFLUENZA VACCINE (#1) 2024 , 04/01/2019, 02/13/2018, Additional history exists COVID-19 VACCINE (3 - season) 2025 05/20/2020, 04/29/2020 RSV VACCINE (1 [...] topic Medical Devices Not on file Insurance [employer] [place] [address] [place] [address] [place] [address] HEALTH PLAN [facility] [employer] [place] [address] [address] [address] [address] [place] [id number] [place] [address] HEALTH PLAN [facility] FAMILY [employer] PLAN Care Teams Slipman Relationship Specialty Start Date End Date Unknown, Unknown, PCP - General 03/24/19 Additional Source Comments The information contained in this document represents components of the legal health record. It is not the complete legal health record.[facility]
--- OUTSIDE RECORDS SUMMARY | 2025-04-20 19:56 | XMS_ITS | Clinical Summary ---
Author Organization [facility] Address [address] [place] [address] Care Team Providers Care Web Marketing Coordinator Name Role Phone Pcp, No Primary Care [...] Influenza Vaccine 12/05/2024 COVID-19 Vaccine (1 - 2024-2 6 season) 2025 RSV Vaccine 50 years and old er and Patients (1 - 1-dose 75+ series) 2036 Hepatitis B Vaccines Aged Out No long er eligible based on patient's age to complete this topic Insurance [facility] Care Teams Web Marketing Coordinator Relationship Specialty Start Date End Date Pcp, No PCP - General General Medicine 12/29/15
[2025-04-21 07:13] LABS: Rubeola IgG (Measles) 125.00 AU/mL
== END 2025-04-20 13:42 | disposition home or self-care (01) ==
LOC: HO.WFDLDS 13:41
PROVIDERS: Visit Provider Family Medicine
DX: Z00.00 Encounter for general adult medical examination without abnormal findings (principal); E11.9 Type 2 diabetes mellitus without complications; E03.9 Hypothyroidism, unspecified; E78.5 Hyperlipidemia, unspecified; I10 Essential (primary) hypertension; Z71.85 Encounter for immunization safety counseling; Z01.84 Encounter for antibody response examination
CPT/HCPCS: 36415; 80053; 80061; 82043; 82570; 84439; 84443; 84480; 85025; 86735; 86762; 86765

== ENCOUNTER 2025-04-23 14:45 | Outpatient (AMB) | payer OTHER, SELFPAY ==
--- NOTE | 2025-04-23 14:51 | A.OFFPC_ITS ---
Vital Signs 04/23/25 14:55 Height 5 ft 4 in Weight 199 lb 5 oz BMI 34.2 BP 107/53 L Blood Pressure Location Lt brachial Position Sitting Respiration 12 Pulse 86 Pulse Source Pulse Oximeter Temp 96.8 F Temp Source Temporal Artery Scan Pulse Oximetry (%) 98 Oxygen Delivery Method Room Air Intake Visit Reasons: Diabetes f/u Intake Note: Follow up on dm Make Up Girl Required: No Allergies lisinopril Allergy (Severe, Verified 04/23/25 14:52) angioadema iodine Allergy (Intermediate, Verified 04/23/25 14:52) hives shellfish derived Allergy (Intermediate, Verified 04/23/25 14:52) hives bupropion (From Wellbutrin) Allergy (Mild, Verified 04/23/25 14:52) rash Medication List - Last Reconciled 04/23/25 by Bashir Sharp MD blood sugar diagnostic (FreeStyle Lite Strips) DX: E11.9, test blood sugar once a day, 90 days blood-glucose meter (FreeStyle Lite Meter kit) DX: E11.9, test blood sugar once a day, duration 999 days chlorthalidone 50 mg PO DAILY 90 days dulaglutide (Trulicity) 0.75 mg (0.5 mL) subcut QWEEK 28 days epinephrine 0.3 mL IM ONCE PRN escitalopram oxalate 30 mg (1.5 x 20 mg) PO DAILY fenofibrate 54 mg PO DAILY 90 days glipizide ER 10 mg PO DAILY 90 days lancets (FreeStyle Lancets) As directed levothyroxine 125 mcg PO DAILY 90 days losartan 100 mg PO DAILY metformin 1,000 mg PO BIDWMEAL mupirocin 2% 1 appl topical BID 10 days trazodone 200 mg (2 x 100 mg) PO BEDTIME Tobacco use date assessed: 04/23/25 Dental Screening Dental Screen Date: 04/23/25 Did you have a dental visit in the last 12 months?: Yes Did you have a dental problem in the last 6 months where you did not have access to dental care?: No Was dental information given to patient?: Patient has dentist HPI Diabetes f/u HPI Details 64 y/o female presents to f/u diabetes. A1c today 6.0%. She is on Trulicity 0.75mg, glipizide 10mg, metformin 1000mg b.i.d. Labs drawn 04/20/25. Reviewed labs with pt. Triglycerides 198. TC 170. LDL 98. HDL low at 33. TSH low at 0.20 uIU/mL. Free T4 1.37 ng/dL. 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 1. Little interest or pleasure in doing things: not at all 2. Feeling down, depressed, or hopeless: not at all 3. Trouble falling or staying asleep, or sleeping too much: not at all 4. Feeling tired or having little energy: not at all 5. Poor appetite or overeating: not at all 6. Feeling bad about yourself - or that you are a failure or have let yourself or your family down: not at all 7. Trouble concentrating on things, such as reading the newspaper or watching television: not at all 8. Moving or speaking so slowly that other people could have noticed. Or the opposite - being so fidgety or restless that you have been moving around a lot more than usual: not at all 9. Thoughts that you would be better off or of hurting yourself in some way: not at all Total score: 0 Depression Screening Interpretation: Negative Depression Screening Done: Yes 14811 - PHQ-9 Billing: Yes Source: Developed by Drs. Umair Fleming, Joyce Lea, Aleks Saavedra and colleagues, with an educational nahun from [employer]. Thrive Questionnaire Date Thrive assessed: 04/23/25 I am a: Patient What is your living situation today?: I have a steady place to live Within the past 12 months, did the food you bought not last and you didn't have the money to get more?: Never true Within the past 12 months, did you worry whether your food would run out before you got money to buy more?: Never true Do you have trouble paying for medicines?: No Do you have trouble getting transportation to medical appointments?: No Do you have trouble paying your heating and electricity bill?: No Do you have trouble taking care of your child, family member or friend?: No Do you have trouble with day-to-day activities such as bathing, preparing meals, shopping, managing finances, etc.?: No Are you currently unemployed and looking for a job?: No Are you interested in more education?: No Please select the resources that you would like help with: None Currently or been in a relationship where the following occur: No concerns reported THRIVE Score: 0 EPIFANIO-7 AMB Questionnaire EPIFANIO-7 Date EPIFANIO - 7 assessed: 04/23/25 Feeling nervous, anxious, or on edge: 0 = Not at all Not being able to stop or control worryin = Not at all Worrying too much about different things: 0 = Not at all Trouble relaxin = Not at all Being so restless that it is hard to sit still: 0 = Not at all Becoming easily annoyed or irritable: 0 = Not at all Feeling afraid as if something awful might happen: 0 = Not at all Total EPIFANIO-7 score (0-4 normal; 5-9 mild; 10-14 moderate; 15-21 severe): 0 Source: Developed by Drs. Umair Fleming, Joyce Lea, Aleks Saavedra and colleagues, with an educational nahun from [employer]. EPIFANIO-7 Assessment Billing EPIFANIO-7 Assessment Tool: EPIFANIO-7 Assessment 66542 Review of Systems Const Denies chills, Denies fatigue, Denies fever(s), Denies headache(s) and Denies weakness ENT Denies dizziness and Denies headache(s) Card Denies dyspnea Resp Denies cough, Denies dyspnea, Denies wheezing and Denies other (shortness of breath) Musc Denies numbness and Denies tingling Neuro Denies dizziness, Denies headache(s), Denies numbness, Denies tingling and Denies weakness Psych Denies anxiety and Denies depression Endo Denies fatigue Aller/Immun Denies wheezing Physical exam (Primary Care) Vital Signs: Last Vital Signs Temp 96.8 F 04/23/25 14:55 Pulse 86 04/23/25 14:55 Resp 12 04/23/25 14:55 BP 107/53 L 04/23/25 14:55 Pulse Ox 98 04/23/25 14:55 Oxygen Delivery Method Room Air 04/23/25 14:55 BMI result Body Mass Index 34.2 Tobacco/Smoking Status: Tobacco use Status Tobacco use date assessed 04/23/25 04/23/25 14:54 Patient Tobacco Use Status Never used Tobacco 04/23/25 14:54 e-Cigarette/Vaping Use Never Used 04/23/25 14:54 PHQ-9: PHQ-9 Score PHQ-9: Total score 0 04/23/25 15:24 Depression Screening Interpretation: Negative Thrive Assessment: Date of Thrive Assessment Date Thrive assessed 04/23/25 04/23/25 14:54 Currently or been in a relationship where the following occur: No concerns reported Const General: well developed; No acute distress Nutritional Appearance: well nourished Orientation/consciousness: patient oriented x3 HENMT Head: Yes normocephalic and Yes atraumatic Eyes General: appearance normal, both eyes and all related structures Pupils: Equal, round and reactive pupils present EOM: EOMs intact bilaterally Resp Effort & Inspection: normal respiratory effort Neuro General: patient oriented x3 and gait normal Cranial nerves: Yes Equal, round and reactive pupils present Psych Affect: normal affect Results AMB Hemoglobin A1c AMB Hemoglobin A1c 6.0 % Last Edit by Sherlyn Garcia MA on 04/23/25 15:05 Results Reviewed Results Reviewed: Laboratory Last Values Hgb A1c (Clinic) 6.0 % (4.0-6.0) 04/23/25 14:59 Coding Level of Care Code Est Pt Level 4 (19008) Diagnoses Diabetes type 2, controlled E11.9 Essential hypertension I10 Hyperlipidemia E78.5 Low HDL (under 40) E78.6 Hypothyroidism E03.9 Alcohol abuse, in remission F10.11 Additional Codes EPIFANIO-7 Assessment Billing - EPIFANIO-7 Assessment Tool: EPIFANIO-7 Assessment [id number] ([id number]) PHQ-9 - 57067 - PHQ-9 Billing: Yes ([id number]) Assessment & Plan Assessment & Plan (1) Diabetes type 2, controlled: Code(s): E11.9 - Type 2 diabetes mellitus without complications Category: Medical Plan: A1c now 6.0%. Good control. Goal is less than 7.0% Continue current medication and diabetic diet Continue weight loss (2) Essential hypertension: Code(s): I10 - Essential (primary) hypertension Category: Medical Plan: Blood pressure is controlled. Goal is less than 140/90 Continue current medications Continue exercise and weight loss May be able to decrease medication at subsequent visit (3) Hyperlipidemia: Code(s): E78.5 - Hyperlipidemia, unspecified Category: Medical Plan: LDL cholesterol is controlled. HDL is a little too low Work at exercise and diet higher in [place] 3 fatty acids (4) Low HDL (under 40): Code(s): E78.6 - Lipoprotein deficiency Category: Medical Plan: As above (5) Hypothyroidism: Code(s): E03.9 - Hypothyroidism, unspecified Category: Medical Plan: TSH slightly below normal range Will recheck in 6 weeks If it is still low, will discuss adjusting her medication (6) Alcohol abuse, in remission: Code(s): F10.11 - Alcohol abuse, in remission Category: Medical Plan: Patient has quit drinking. Congratulated patient and encouraged her to continue abstinence Plan She will return in 6 weeks to follow-up hypertension and hypothyroidism. If blood pressures remain low, may decrease antihypertensive medication If TSH remains low, will adjust levothyroxine Orders: Orders Free T4 (Free Thyroxine) Today E03.9 - Hypothyroidism, unspecified Triiodothyronine T3 Total Today E03.9 - Hypothyroidism, unspecified Thyroid Stimulating Hormone Today E03.9 - Hypothyroidism, unspecified AMB Hemoglobin A1c Today E11.9 - Type 2 diabetes mellitus without complications Basic Metabolic Panel Today E03.9 - Hypothyroidism, unspecified, Z00.00 - Encounter for general adult medical examination without abnormal findings Medications: Changed From trazodone 200 mg (2 x 100 mg) PO BEDTIME 60 tabs 2RF To trazodone 200 mg (2 x 100 mg) PO BEDTIME 180 tabs 2RF 90 days
[2025-04-23 14:55] VITALS: BP 107/53; PULSE 86; RESP 12; TEMP 36; O2SAT 98; BMI 34.2
--- OUTSIDE RECORDS SUMMARY | 2025-04-23 18:52 | XMS_ITS | Clinical Summary ---
Author Organization [facility] Address [address] [place] [address] Care Team Providers Care Tube Inspector Name Role Phone Pcp, No Primary Care [...] patient's age to complete this topic Insurance [facility] Care Teams Tube Inspector Relationship Specialty Start Date End Date Pcp, No PCP - General General Medicine 12/29/15
--- OUTSIDE RECORDS SUMMARY | 2025-04-23 18:52 | XMS_ITS | Clinical Summary ---
Author Organization [facility] Address [address] [address] Phone Care Team Providers Care Stock Clipper Name Role Phone Unknown, Unknown MD Primary [...] Not on file Insurance [employer] [place] [address] [address] [place] [address] [employer] [place] [address] [address] [employer] [address] [place] [address] [place] [id number] [place] [address] HEALTH PLAN [facility] [employer] Care Teams Stock Clipper Relationship Specialty Start Date End Date Unknown, Unknown, PCP - General 03/24/19 Additional Source Comments The information contained in this document represents components of the legal health record. It is not the complete legal health record.[facility]
== END 2025-04-23 15:42 | disposition home or self-care (01) ==
LOC: HO.HMCFM 14:46
PROVIDERS: PCP Family Medicine; Visit Provider Family Medicine
DX: E11.9 Type 2 diabetes mellitus without complications (principal)

== ENCOUNTER → 2025-04-23 14:45 | Outpatient (BNVA) | payer OTHER, SELFPAY | PROVIDERS: PCP Family Medicine; Visit Provider Family Medicine | DX: I10 Essential (primary) hypertension (principal); E03.9 Hypothyroidism, unspecified; E11.9 Type 2 diabetes mellitus without complications; E78.5 Hyperlipidemia, unspecified; E78.6 Lipoprotein deficiency; F10.11 Alcohol abuse, in remission; Z79.899 Other long term (current) drug therapy | CPT/HCPCS: 83036; 96127; 99212 ==